=== PATIENT | male | born 1950 | race Caucasian/White ===

== ENCOUNTER 2016-10-01 18:08 | Inpatient (IN) ==
[2016-10-01 19:09] LABS: MANUAL DIFF NEEDED? NO
--- NOTE | 2016-10-01 19:09 | Diag Imaging Result Doc PS360 ---
EXAM: CHEST-PORTABLE HISTORY: r/o pneumonia TECHNIQUE: Portable upright AP COMPARISON: 06/27/2016 FINDINGS: There is complete opacification of the right upper hemithorax on the current exam. Patient has a known right hilar mass and there is likely postobstructive atelectasis. The left lung remains well expanded and clear. The heart is not enlarged. IMPRESSION: Known right hilar mass with postobstructive atelectasis and pneumonia in the right upper lobe. Electronically signed by Miguel Membreno 10/01/2016 7:06 PM
[2016-10-01] MEDS ORDERED: NS 1,000 ML IV ONE (19:11)
[2016-10-01] MEDS ORDERED: DUONEB (A & A) INH ONE (19:12)
[2016-10-01 19:14] LABS: BASO% 0.2 % (0.0-0.8); EOS# 0.01 X1000 (0.0-0.7); EOS% 0.1 % (0.0-10.0); HEMATOCRIT 33.9 % (42.0-52.0); HEMOGLOBIN 11.5 g/dL (14.0-18.0); IMM GRAN# 0.11 X1000 (0.0-0.04); IMM GRAN% 0.9 % (0.0-0.5); LYMPH# 0.79 X1000 (1.2-3.4); LYMPH% 6.3 % (20.5-51.1); MCH 32.4 PG (27-31); MCHC 33.9 g/dL (33-37); MCV 95.5 FL (81-99); MONO# 1.16 X1000 (0.11-0.59); MONO% 9.3 % (1.7-9.3); MPV 8.7 FL (7.4-10.4); NEUT% 83.2 % (42.2-75.2); PLT 344 X1000 (130-400); RBC 3.55 XMIL (4.7-6.1)
--- NOTE | 2016-10-01 19:15 | PROVIDER DOCUMENTATION ---
HPI-General Adult - General Chief Complaint: Fever Stated Complaint: POSSIBLE PNEUMONIA Time Seen by Provider: 10/01/16 18:58 Source: patient, family Allergies/Adverse Reactions: Patient Allergies Allergy/AdvReac Type Severity Reaction Status Date / Time codeine Allergy Unknown Verified 10/01/16 20:02 hydrocodone Allergy Unknown Verified 10/01/16 20:02 Home Medications: Home Medication List Medication Instructions Recorded Confirmed Last Taken Type Aspirin EC 81 mg PO DAILY 10/01/16 10/01/16 10/01/16 07:00 History Atorvastatin Calcium [Lipitor] 80 mg PO QHS 10/01/16 10/01/16 09/30/16 20:00 History Esomeprazole Magnesium [Nexium] 40 mg PO DAILY 10/01/16 10/01/16 10/01/16 07:00 History Fluconazole [Fluconazole] 100 mg DAILY 10/01/16 10/01/16 Unknown History Metoprolol Succinate [Toprol Xl] 100 mg PO DAILY 10/01/16 10/01/16 10/01/16 07: 00 History Sitagliptin Phos/Metformin HCl 1 each PO DAILY 10/01/16 10/01/16 10/01/16 07:00 History [Janumet 50-500 mg Tablet] - History of Present Illness -Gen Adult Nature of Presenting Problems: pt presents complaining of productive cough, dyspnea, fever for last week. He has been on augmentin for this. He has history of lung CA. He is not currently on chemo or radiation. He denies chest pain. pna approx 2 months ago as well. Location of Pain/Injury: reports: none Pain Radiation: reports: no radiation Quality of Pain: reports: none Review of Systems - Adult - REVIEW OF SYSTEMS - ADULT Constitutional: reports: chills, fever, fatique Eyes: reports: no symptoms reported Ears, Nose, Mouth & Throat: reports: no symptoms reported Cardiovascular: reports: no symptoms reported. denies: chest pain, palpitations Respiratory: reports: see HPI, cough, shortness of breath, wheezing Gastrointestinal: reports: no symptoms reported Genitourinary: reports: no symptoms reported Musculoskeletal: reports: no symptoms reported. denies: muscle aches Integumentary: reports: no symptoms reported. denies: rash Neurological: reports: no symptoms reported. denies: headache/migraines, paresthesia Psychiatric: reports: no symptoms reported Endocrine: reports: no symptoms reported Hematologic/Lymphatic: reports: no symptoms reported Allergic/Immunologic: reports: no symptoms reported All Other Systems: Reviewed and Negative Past History - Adult - PAST MEDICAL HISTORY-ADULT Review of Records: reports: Old Records Reviewed, Nursing Assessment Review, Medications Reviewed, Social history reviewed & non-contributory. Major Childhood Illnesses: reports: denies history Cardiovascular: reports: blood clots (remote) Respiratory: reports: COPD, cancer, pneumonia Gastrointestinal: reports: denies history Obstetrical/Gynecological: reports: denies history Genitourinary: reports: denies history Musculoskeletal: reports: denies history Neurological: reports: denies history Endocrine/Immune: reports: denies history Other Conditions: reports: denies history - IMMUNIZATION STATUS Childhood Immunizations: See Nurse Assessment Flu Vaccine: See Nurse Assessment - SOCIAL HISTORY Smoking: quit greater than 1 year Alcohol Use Frequency: never Physical Exam-General - PHYSICAL EXAM-ADULT Initial Vital Signs Reviewed: Yes - CONSTITUTIONAL General Appearance: alert, mild distress - EYES Eyes: PERRL/EOMI, pink conjunctivae - HEAD, EARS, NOSE, MOUTH & THROAT HENMT: normocephalic/atraumatic, moist mucous membranes - NECK Neck: non-tender, full range of motion, supple - RESPIRATORY Respiratory: chest non-tender, rhonchi, wheezing - CARDIOVASCULAR Cardiovascular: normal peripheral pulses, tachycardia - GASTROINTESTINAL (ABDOMEN) Abdominal Exam: normal bowel sounds, non tender, soft - LYMPHATIC Lymphatic: no adenopathy, axilla node tender - MUSCULOSKELETAL Back Exam: normal inspection Extremity: normal range of motion, non-tender. negative: calf tenderness Peripheral Pulses: radial (R): 2+, radial (L): 2+ - SKIN Integumentary: normal color, normal turgor, warm/dry - NEUROLOGIC Neurologic: utilities operator II-XII nml as tested - PSYCHIATRIC Psych/Mental Status: normal mood/affect, oriented x 3 Progress - PLAN OF CARE/RESULTS Progress/Plan/Lab Results: Vital Signs - 8 hr 10/01/16 18:16 Temperature 99.3 F Pulse Rate 127 H Respiratory Rate 22 Blood Pressure 155/74 O2 Sat by Pulse Oximetry 95 Laboratory Results - last 24 hr 10/01/16 18:56 WBC 12.49 H RBC 3.55 L Hgb 11.5 L Hct 33.9 L MCV 95.5 MCH 32.4 H MCHC 33.9 RDW Std Deviation 13.2 Plt Count 344 MPV 8.7 Immature Gran % (Auto) 0.9 H Neut % (Auto) 83.2 H Lymph % (Auto) 6.3 L Duval % (Auto) 9.3 Eos % (Auto) 0.1 Baso % (Auto) 0.2 Immature Gran # (Auto) 0.11 H Neut # (Auto) 10.40 H Lymph # (Auto) 0.79 L Duval # (Auto) 1.16 H Eos # (Auto) 0.01 Baso # (Auto) 0.02 Orders Category Date Time Status Cardiac Monitoring DIRECTED Care 10/01/16 19:00 Active Saline Loc NOW Care 10/01/16 19:00 Active CHEST-PORTABLE [RAD] Stat Exams 10/01/16 18:39 Completed BLOOD CULTURE [BLDCUL] Stat Lab 10/01/16 18:39 Uncollected CBC WITH ELECTRONIC DIFF [HEME] Stat Lab 10/01/16 18:56 Completed CK PROFILE [SP CHEM] Stat Lab 10/01/16 18:56 Received COMPREHENSIVE METABOLIC PANEL [CHEM] Stat Lab 10/01/16 18:56 Received D-DIMER [CHEM] Stat Lab 10/01/16 18:56 Received LACTATE, PLASMA [CHEM] Stat Lab 10/01/16 18:56 Received MAGNESIUM [CHEM] Stat Lab 10/01/16 18:56 Received PRO B-NATRIURETIC PEPTIDE Stat Lab 10/01/16 18:56 Received PROTIME WITH INR [COAG] Stat Lab 10/01/16 18:56 Received PTT [COAG] Stat Lab 10/01/16 18:56 Received TROPONIN T Stat Lab 10/01/16 18:56 Received 0.9% Sodium Chloride Inj [Ns] 1,000 ml Med 10/01/16 19:11 Discontinued IV As Directed Albuterol 2.5MG/Ipratrop 0.5MG [Duoneb (A & A)] Med 10/01/16 19:12 Discontinued 3 ml INH NOW ONE Aerosol Treatments Routine Oth 10/01/16 19:13 Active Aerosol Treatments Stat Oth 10/01/16 19:13 Active Pulse Oximetry Stat Oth 10/01/16 18:39 Active EKG [EKG] Stat Ther 10/01/16 18:41 Ordered pt feeling better. Result Diagrams: 10/01/16 18:56 10/01/16 18:56 - XRAY 1 XRAY Study: Chest XRAY Interpretation: pna, lung mass - CONSULTS/PCP/HOSPITALIST Notification #1 *Consult/PCP/Hospitalist*: Dr. Khanna Time Discussed: 21:24 Consult Disposition: Will see in ED Departure - Departure Date of Disposition Decision: 10/01/16 Time of Disposition Decision: 20:42 DIAGNOSIS: Elevated d-dimer Pneumonia Qualifiers: Pneumonia type: due to unspecified organism Laterality: right Lung location: upper lobe of lung Qualified Code(s): J18.1 - Lobar pneumonia, unspecified organism Sepsis Qualifiers: Sepsis type: sepsis due to unspecified organism Qualified Code(s): A41.9 - Sepsis, unspecified organism Disposition: ADMITTED INPATIENT 09 Certified Medical Emergency: Emergent Condition: Fair Referrals and Follow-Ups: None,PCP [Primary Care Provider] - - Critical Care Note This patient required my direct & personal management of CC.: Yes Total Time (mins): 30 Critical Care Statement: This patient required my direct personal management to treat or rule out processes, the absence of which, could potentiallly result in sudden, clinically significant life or limb threatening deterioration. Attestation - Physician/ GLENNA Attestation Patient care was provided by Advanced Practice Provider:: Yes Advanced Practice Provider:: Lucas Collazo Advanced Practice Provider documentation review:: The Mid-level provider documentation, treatment plan and medical decision making was reviewed by the physician who agrees with all treatment and medical decision making by the MLP.
[2016-10-01 19:23] LABS: INR 1.08; PROTIME 11.4 Seconds (9.2-11.7); PTT 31.1 Seconds (22.0-36.0)
[2016-10-01 19:35] LABS: MAGNESIUM 1.3 mg/dL (1.5-2.7); TOTAL BILIRUBIN 0.39 mg/dL (0.20-1.00); TOTAL PROTEIN 7.7 g/dL (6.3-8.3)
[2016-10-01] MEDS ORDERED: ZOSYN 3.375 GM/NS 3.375 GM/50 ML IVPB IV ONE (20:32)
[2016-10-01] MEDS ORDERED: VANCOMYCIN 1 GM/NS 1 GM/250 ML IVPB IV ONE (20:32)
[2016-10-01] MEDS ORDERED: NS 2,000 ML ONE (20:42)
--- NOTE | 2016-10-01 23:01 | Diag Imaging Result Doc PS360 ---
EXAM: CT THORAX W/O CONTRAST HISTORY: pna, right lung cancer TECHNIQUE: Dose reduction protocol COMPARISON: None. FINDINGS: There is consolidation of the right upper lobe. There is obstruction of the upper lobe bronchus by a central mass. Due to the complete consolidation it is not possible to determine the size of the central mass. This mass and/or adenopathy narrows the right mainstem bronchus and the bronchi to the right middle and lower lobes. There are dense infiltrates and small cavities in the lateral segment of the right middle lobe. There is a small right-sided pleural effusion measuring 2.6 cm posteriorly and inferiorly in the midline. No left-sided effusion. No cardiomegaly. There are calcified left hilar lymph nodes. There are multiple small nodules scattered throughout both lungs. IMPRESSION: Right perihilar mass of indeterminate size with complete consolidation of the right upper lobe and dense infiltrates and small cavities in the right middle lobe. There are also multiple scattered bilateral metastatic nodules in addition to small right pleural effusion. Electronically signed by Miguel Membreno 10/01/2016 10:58 PM
[2016-10-01] MEDS ORDERED: OFIRMEV 1000 MG/ISOTONIC SOLN 1,000 MG/100 ML BOTTLE IV PRN (23:12)
[2016-10-01] MEDS ORDERED: VANCOMYCIN IV PER PHARMACY MISC SCH (23:12)
[2016-10-01] MEDS: DUONEB (A & A) INH SCH (23:30)
--- NOTE | 2016-10-01 23:46 | HISTORY AND PHYSICAL ---
PRIMARY CARE PHYSICIAN: JOANNA Disla PRIMARY ONCOLOGIST: Dr. Ana María Rossi. HISTORY OF PRESENT ILLNESS: This is a 66-year-old male with past medical history lung cancer under the care Dr. Ana María Rossi. He reported he call Dr. Rossi's office approximately 10 days ago because he was having more cough and fever so he was prescribed Augmentin so today is day #9 on therapy and he reports that the cough is getting worse and he is still spiking fever today he had a 100.8 temperature with shortness of breath, some wheezing so he decided to come to the emergency department. He denies any chest pain. He denies any diarrhea or abdominal pain. Patient is being admitted for further evaluation and treatment. PAST MEDICAL HISTORY: 1. Lung cancer and he has last session of chemotherapy on last June 2016 and he also reports that he had metastasis to the brain and he received in total 15 sessions of radiotherapy that stopped 1 month ago. 2. Skin cancer in the back removed few years ago. 3. Bladder cancer 2004 he received 19 sessions BCG. 4. Coronary artery disease with stent placed in 2003. PAST SURGICAL HISTORY: Prostatectomy removed few years ago. ALLERGIES: Patient is allergic to hydrocodone, choline. SOCIAL HISTORY: Patient is a former smoker, he quit smoking 4 years ago. Denies drinking alcohol, using drugs. REVIEW OF SYSTEMS: All symptoms are related to H and P. PHYSICAL EXAMINATION: VITALS: Temperature 99.3 degrees, heart rate 127, respiratory 22, blood pressure 155/74, O2 saturation 95% on room air. GENERAL: The patient is a chronically ill looking 66-year-old male lying in bed in no acute distress. HEENT: Head is normocephalic, atraumatic. Anicteric sclerae and pale conjunctivae. Mucous membranes dry. NECK: Supple. No JVD noted. No carotid bruits. No lymphadenopathy. No thyromegaly. CARDIOVASCULAR: S1, S2 heard. No murmurs, gallops, or rubs. Regular rate and rhythm. RESPIRATORY: Wheezing all over both pulmonary yi with coarse breath sounds more noted in the right base all the way up to the apex. Patient is not using any accessory muscles or having work of breathing. ABDOMEN: Soft, nontender to palpation. Bowel sounds present. No organomegaly. EXTREMITIES: No clubbing, cyanosis, edema. Peripheral pulses present in both legs. NEUROLOGICAL: Patient alert and oriented x3. Able to move 4 extremities. Cranial nerves 2-12 grossly normal. LABORATORY DATA: White cell count 12.49, hemoglobin 11.5, hematocrit 33.9, platelets 344,000. Sodium 135, potassium 4.0, chloride 93, bicarbonate 28, BUN 23, creatinine 1.2, glucose 209. ASSESSMENT AND PLAN: 1. Community-acquired pneumonia. Patient is being admitted for pneumonia. Patient is still spiking fever and he failed outpatient therapy. Because of this I prefer to put this patient on broad-spectrum antibiotic with vancomycin and Zosyn. We are also provide breathing treatments with albuterol and Atrovent because patient wheezing in both lungs. I think is because of the chronic obstructive pulmonary disease and longstanding history of smoking. He is also febrile so we are going to use Tylenol as needed for fever. 2. Lung cancer. We are going to consult Dr. Rossi from Hematology/Oncology see what else we can do for this patient although apparently he has finished chemotherapy and radiotherapy with metastasis to the brain. 3. Diabetes. We are going to hold antidiabetic medication and place this patient on sliding scale insulin and check hemoglobin A1c and check Accu-Cheks before meals and also at bedtime. Further recommendations to follow according to clinical situation of the patient. cc: Sigifredo Diop MD
[2016-10-02] MEDS: NS 1,000 ML IV SCH ×2 (00:05→10:57)
[2016-10-02] MEDS: ZOFRAN IV PRN (00:05)
[2016-10-02] MEDS: LOVENOX SUBQ SCH ×2 (00:06→20:20)
[2016-10-02] MEDS ORDERED: VANCOMYCIN 1,500 MG in NS 250 ML IV ONE (02:00)
[2016-10-02 02:42] LABS: URINE CULTURE NEEDED? NO; URINE MICRO REVIEW NEEDED? NO; URINE SOURCE CATH
[2016-10-02 03:11] LABS: BILIRUBIN URINE NEGATIVE (NEGATIVE); BLOOD URINE NEGATIVE (NEGATIVE); COLOR YELLOW; GLUCOSE URINE NEGATIVE (NEGATIVE); LEUKOCYTES URINE NEGATIVE (NEGATIVE); NITRITE URINE NEGATIVE (NEGATIVE); PROTEIN URINE TRACE mg/dL (NEGATIVE); SP GRAVITY URINE 1.016; TURBIDITY URINE CLEAR (CLEAR); UR EPITHELIAL CELLS <10 /HPF (<10); URINE BACTERIA NEGATIVE /HPF; URINE RBC <10 /HPF (<10); URINE WBC <10 /HPF (<10); UROBILINOGEN URINE NORMAL (NORMAL)
[2016-10-02] MEDS: DUONEB (A & A) INH SCH ×6 (03:26→23:19)
[2016-10-02] MEDS: ZOSYN 3.375 GM/NS 3.375 GM/50 ML IVPB IV SCH ×4 (03:42→20:19)
[2016-10-02 05:45] LABS: MANUAL DIFF NEEDED? NO
[2016-10-02 05:53] LABS: BASO% 0.1 % (0.0-0.8); HEMATOCRIT 29.3 % (42.0-52.0); HEMOGLOBIN 9.9 g/dL (14.0-18.0); IMM GRAN# 0.07 X1000 (0.0-0.04); IMM GRAN% 0.6 % (0.0-0.5); LYMPH# 0.86 X1000 (1.2-3.4); MCH 32.2 PG (27-31); MCHC 33.8 g/dL (33-37); MCV 95.4 FL (81-99); MONO# 1.39 X1000 (0.11-0.59); MONO% 11.3 % (1.7-9.3); MPV 8.5 FL (7.4-10.4); PLT 280 X1000 (130-400); RBC 3.07 XMIL (4.7-6.1)
[2016-10-02] MEDS: HUMALOG SUBQ SCH ×4 (06:06→20:20)
[2016-10-02 06:11] LABS: AGAP 11; BUN 17 mg/dL (8-22); CALCIUM 8.6 mg/dL (8.8-10.2); CHLORIDE 96 mmol/L (98-107); COSMO 274; POTASSIUM 3.5 mmol/L (3.5-5.1); SODIUM 132 mmol/L (136-145); TCO2 25 mmol/L (25-35)
[2016-10-02] MEDS: NEXIUM PO SCH (08:44)
[2016-10-02] MEDS: ASPIRIN EC PO SCH (08:44)
[2016-10-02] MEDS: DIFLUCAN PO SCH (08:45)
--- NOTE | 2016-10-02 18:27 | PROGRESS NOTE ---
DATE: 10/02/2016 SUBJECTIVE: Mr. Wheeler is a 66-year-old male who got admitted yesterday. 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 Had 4 sessions of chemotherapy since March of this year and had 15 sessions of radiation to his brain. Subsequently he said he has been having some gait issues. He was started on Opdivo 3 days ago. However, yesterday he started having a temperature of over 101 at home so he decided to come into the emergency department. Upon presentation, he was evaluated and was admitted for right upper lobe pneumonia. OBJECTIVE: Vital signs: Blood pressure is 129/69, pulse of 103, respirations 12, temperature 98.5 degrees. General: Mr. Wheeler is a 66-year-old male. He is in bed. Does not seem to be in any remarkable distress. HEENT: Mucosa is pink and moist. Anicteric. Acyanotic. Neck: Supple. Chest: Air entry is bilaterally reduced, more so in the right upper lobe. There are some crepitations associated. Cardiovascular: Regular rate and rhythm. Abdomen: Soft, nontender. Extremities: No pedal edema. PNEUMATIC PRESS HAND: Patient is awake, alert, and oriented. There is no focal neurological deficit. The patient has a normal sensation level on the lower extremities and reflexes are normal. There seems to be a bilateral Babinski, however. LABORATORY DATA: WBC is 13.26, hemoglobin is 9.9, platelet count is 280,000. Chemistry is reviewed. Sodium is 132, potassium is 3.5, chloride 96, bicarb is 25, glucose is 250. Plasma lactate of 2.3, is now down to 1.3. CT scan of the chest which was done yesterday shows perihilar mass of indeterminate size with complete consolidation of the right upper lobe and dense infiltrates and small cavities in the right middle lobe. There are multiple scattered bilateral nodules in addition to small right pleural effusion. ASSESSMENT: 1. History of right upper lobe small-cell lung cancer with possible postobstructive pneumonia. Patient has been started on IV antibiotics, Zosyn and vancomycin. We will continue with this. Will consult ID for guidance and follow up. 2. Hyponatremia. 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 It has worsened actually this morning with the fluids, so I will go ahead and discontinue the IV fluids. 3. Gait imbalance. Likely due to radiation side effects on the brain. 4. Sepsis. Secondary to underlying pneumonia. 5. Diabetes mellitus with an A1c of 1.0. 6. Mild hypomagnesemia. We will replace this. cc: Dm Duque MD [facility] CAMPUSAdamaris
[2016-10-02] MEDS ORDERED: SAMSCA PO ONE (18:59)
[2016-10-02] MEDS: LIPITOR PO SCH (20:19)
[2016-10-02] MEDS: DILAUDID IV PRN (20:20)
[2016-10-02] MEDS ORDERED: ATORVASTATIN CALCIUM 80 MG PO SCH (21:00)
[2016-10-03] MEDS: VANCOMYCIN 2 GM in NS 500 ML IV SCH ×2 (00:03→02:16)
[2016-10-03] MEDS: DILAUDID IV PRN (00:11)
[2016-10-03] MEDS: ZOSYN 3.375 GM/NS 3.375 GM/50 ML IVPB IV SCH ×4 (02:17→21:03)
[2016-10-03] MEDS: DUONEB (A & A) INH SCH ×6 (03:21→23:32)
[2016-10-03 04:53] LABS: MANUAL DIFF NEEDED? NO
[2016-10-03 05:08] LABS: BASO% 0.1 % (0.0-0.8); EOS# 0.01 X1000 (0.0-0.7); EOS% 0.1 % (0.0-10.0); HEMATOCRIT 28.5 % (42.0-52.0); HEMOGLOBIN 9.5 g/dL (14.0-18.0); IMM GRAN# 0.11 X1000 (0.0-0.04); LYMPH# 0.85 X1000 (1.2-3.4); LYMPH% 7.5 % (20.5-51.1); MCH 32.3 PG (27-31); MCHC 33.3 g/dL (33-37); MCV 96.9 FL (81-99); MONO# 1.15 X1000 (0.11-0.59); MONO% 10.1 % (1.7-9.3); MPV 8.5 FL (7.4-10.4); NEUT% 81.2 % (42.2-75.2); PLT 309 X1000 (130-400); RBC 2.94 XMIL (4.7-6.1)
[2016-10-03 05:21] LABS: AGAP 14; BUN 12 mg/dL (8-22); CALCIUM 8.6 mg/dL (8.8-10.2); CHLORIDE 97 mmol/L (98-107); COSMO 282; POTASSIUM 3.7 mmol/L (3.5-5.1); SODIUM 138 mmol/L (136-145); TCO2 27 mmol/L (25-35)
[2016-10-03] MEDS: HUMALOG SUBQ SCH ×4 (06:22→21:02)
[2016-10-03] MEDS: DIFLUCAN PO SCH (08:39)
[2016-10-03] MEDS: NEXIUM PO SCH (08:39)
[2016-10-03] MEDS: ASPIRIN EC PO SCH (08:39)
[2016-10-03] MEDS: ZYVOX PO SCH ×2 (08:40→21:02)
--- NOTE | 2016-10-03 13:31 | Diag Imaging Result Doc PS360 ---
EXAM: BA SWALLOW W/VIDEO SPEECH THER HISTORY: dysphagia TECHNIQUE: Multiple swallows with rapid sequence imaging in the lateral projection. COMMENT: Patient was able to swallow various consistencies of barium. There is one episode with thin barium of transient aspiration which is cleared by coughing immediately. No obstructing lesions are present. There is no evidence of achalasia. IMPRESSION: Brief episode of aspiration as described. Electronically signed by Yariel Cordova 10/03/2016 1:28 PM
--- NOTE | 2016-10-03 15:32 | CONSULTATION ---
DATE OF CONSULTATION: 10/03/2016 CONCLUSION: This patient has a right lung pneumonia which he is predisposed to because he has cancer in the right lung which is partially obstructing his airways. The patient also has decreased hearing. RECOMMENDATIONS: I agree with treating the patient with Zosyn. I have discontinued vancomycin because the patient has decreased hearing and instead I have put the patient on Zyvox. DISCUSSION: The patient said for the past 3 days he has felt weak. He has been coughing and occasionally producing sputum. He has not had any fever or shaking chills. He has not noticed any blood in his sputum. Laboratory studies thus far, on CT scan there is a right hilar mass with consolidation and cavity formation in the right lung. CBC shows a white count of 11,250, hemoglobin 9.5, and platelet count 209,000. Creatinine is 1.1. GFR is greater than 60. Alkaline phosphatase is 167. Blood and urine cultures are negative. Urinalysis showed no white cells or bacteria. PAST MEDICAL HISTORY/REVIEW OF SYSTEMS: Eyes and ears: Patient has decreased hearing. He said this occurred secondary to a radiation of his brain because of metastatic lung cancer. The incision is intact. Neck: No stiffness. Respiratory: Patient has been coughing and occasionally producing sputum. He also has some pleuritic chest pain on the right side. Cardiovascular: No substernal pain or palpitations. GI: No nausea or vomiting, but the patient does have some loose stools. : No dysuria or flank pain. Endocrine: Patient does not have diabetes or thyroid disease. Neurologic: The patient does have metastatic lung disease in his brain. He has not been having seizures or syncopal episodes. He does have decreased hearing though. Bones, joints, muscles: No joint swelling or myalgias. The remainder of the patient's review of systems was completed and was negative. PREVIOUS HOSPITALIZATIONS AND OPERATIONS: He has had cervical spine surgery and removal of a skin cancer, removal of bladder cancer and insertion of BCG. Myocardial infarction with stents placed in the coronary artery. The patient also has PVCs. He has cataracts. He has had benign prostatic hypertrophy. Patient has been operated on for his prostate problem. MEDICAL DISEASES: Positive for myocardial infarction, lung cancer which is metastatic to the brain. Patient has also had bladder cancer and skin cancer. Diabetes, gastroesophageal reflux disease and hyperlipidemia. INFECTIOUS DISEASE HISTORY: Positive for pneumonia. FAMILY HISTORY: Positive for myocardial infarction, stroke, and cancer. [place]IAL HISTORY[place] He stopped smoking cigarettes 4 years ago. He rarely drinks alcoholic beverages. He does not do any drugs. ALLERGIES: Patient is allergic to codeine and hydrocodone. HOME MEDICATIONS: Janumet. Metoprolol. Nexium. Lipitor. Aspirin. PHYSICAL EXAMINATION: Vital Signs: Temperature is 98.9 degrees, pulse 116, respirations 21, blood pressure 128/79, patient weighs 255 pounds. Generally: This is a somewhat ill-appearing elderly male who is in no acute distress. Head, eyes, ears, nose, and throat: The patient has lost all his hair secondary to radiation. He has decreased hearing. He can see near objects. The patient is wearing dentures. Neck: No meningismus. Thorax: Increased AP diameter of the chest. Lungs: There were no breath sounds on the right side. The left side was clear. Abdomen: Soft and nontender. Neurologic: Patient is awake. As mentioned above, he has decreased hearing. He can move his extremities. There is no tremor. His sensation was intact to touch. Extremities: The patient has bilateral leg edema. Integument: No rash noted. Thank you for the consult. cc: Janak Marley MD
[2016-10-03] MEDS: LOVENOX SUBQ SCH (21:02)
[2016-10-03] MEDS: LIPITOR PO SCH (21:02)
--- NOTE | 2016-10-03 21:15 | PROGRESS NOTE ---
DATE: 10/03/2016 SUBJECTIVE: Today Mr. Wheeler referred to be doing fine. Did not actually have any major concern except that he said was having a little difficulty to swallow which he was not even able to describe it himself. He said it was whenever the food goes down he does not feel like it is stuck but he has maybe difficulty to initiate swallowing so we ordered a swallow evaluation which has come back almost normal. OBJECTIVELY: Vitals: Blood pressure is 142/77, pulse of 117, respirations 16, temperature 98.7 degrees. General: Mr. Wheeler is a 66-year-old male, he is in bed in no distress. HEENT: Mucosa is pink and moist. Anicteric. Acyanotic. Neck: Supple. Chest: Air entry is bilaterally reduced more so to the right upper lobe. There is some crepitation around it. Cardiovascular: Slightly tachycardic but no murmurs, no rubs. No gallops. Abdomen: Soft, nontender. Extremities: No pedal edema. POT ROOM SUPERVISOR: Patient is awake and alert and oriented. There is no focal neurological deficit. LABORATORY DATA: WBC is 11.35, hemoglobin is 9.5, platelet count of 309,000. Chemistry is reviewed. Sodium is up to 138, rest of chemistry is completely unremarkable. Glucose is 219. ASSESSMENT: 1. Sepsis on presentation secondary to underlying pneumonia. Patient presented after the first dose of Opdivo from his primary oncologist for the treatment of lung cancer. Subsequently he started having fever and chills so he came to the emergency department where he was found to have evidence of systemic inflammatory response syndrome plus pneumonia consistent with sepsis. He seems to be doing a whole lot better today. 2. Right upper lobe postobstructive pneumonia. 3. Right upper lobe small cell lung cancer noted. 4. 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 This got corrected with a dose of Samsca. 5. Subjective complaint of swallowing difficulties. However we did a swallow evaluation on fluoroscopy and it is completely normal. In general I think Mr. Wheeler seems to be doing fine. He was evaluated by Dr. Marley today and he has been placed on Zyvox and Zosyn. Sputum culture has also been has been collected, we pending the official report. So far Gram stain only shows white blood cell. His swallow evaluation has been unremarkable so I think by in about a day or 2 if he continues to be afebrile, breathing well he might be able to be discharged on oral antibiotics to follow up with his primary care oncologist and with also Dr. Marley. cc: Dm Duque MD
--- NOTE | 2016-10-03 21:54 | CONSULTATION ---
DATE OF CONSULTATION: 10/03/2016 REASON FOR CONSULTATION: Consultation has been requested by Dr. Duque. Consultation is for history of lung cancer, patient known. HISTORY OF PRESENT ILLNESS: Mr. Wheeler is a 66-year-old male who is known to us as we are currently treating him for squamous cell carcinoma of the lung. Patient is status post 4 cycles of neoadjuvant cisplatin, Taxotere with partial response on scans. Patient did develop brain metastasis and has recently completed whole brain radiation. He started Opdivo on 09/29/2016 has received 1 dose. Patient had originally called our office complaining of cough and congestion. He was started on Augmentin. However his symptoms did not improve and rather worsened. He then presented to [facility] complaining of cough with fever. He has failed oral Augmentin. Patient has now been admitted with pneumonia and is on IV antibiotics. We have been consulted to help assist in his care while he is here at [facility]. PAST MEDICAL HISTORY: 1. Lung cancer with brain metastasis as per above. 2. Skin cancer on the back removed few years ago. 3. Bladder cancer in 2004 where he received 19 sessions of BCG. 4. Coronary artery disease status post stent placement 2003. 5. Diabetes mellitus. 6. Hypertension. 7. GERD. 8. Degenerative disk disease. PAST SURGICAL HISTORY: Prostatectomy few years ago as per above in medical history. Tonsillectomy 1955, cervical fusion 1959, 1997 had that Mohs surgery for DSSP. SOCIAL HISTORY: Patient is a former smoker but quit 4 years ago. He denies drink any alcohol or using any drugs, patient is and lives with his spouse. FAMILY HISTORY: Mother at age 62 of breast cancer. Father at age 74 of heart disease. He also has siblings that have heart disease. REVIEW OF SYSTEMS: A 12 point review of system has been completed and is negative except for what was expressed in the HPI. PHYSICAL EXAMINATION: Vital Signs: Temperature 98.3 degrees, heart rate 116, blood pressure 147/80, respirations 16, O2 saturation 94% 2 L nasal cannula. General: male lying in hospital bed in no acute distress. He has family member at bedside. HEENT: Head normocephalic, atraumatic. Pupils equal, round, reactive. Oral mucosa appears to be normal. Trachea is midline. Gross auditory acuity is intact. Cardiovascular: Tachycardia noted. Respiratory: Patient has some wheezing and coarse breath sounds bilaterally. Abdomen: Soft, nontender, nondistended. Positive bowel sounds. Musculoskeletal: Some trace bilateral extremity edema noted. Neurologic: The patient appears to be alert and oriented x3 with no focal motor deficits. LABS AND STUDIES: White blood cells 11.35, hemoglobin 9.5, hematocrit 28.5, platelets 309,000. Sodium 138, potassium 3.7, chloride 97, CO2 27, BUN 12, creatinine 1.1, glucose 219. CT of chest done on 10/01/2016 shows consolidation of the right upper lobe and dense infiltrates and small cavities in the right middle lobe. Multiple scattered bilateral metastatic nodules in addition to the small right pleural effusion. ASSESSMENT: 1. Squamous cell carcinoma of the lung with brain metastasis. Status post neoadjuvant treatment, whole-brain radiation as per history of present illness. Now receiving Opdivo with his 1 only dose completed on 09/29/2016. Treatment will be on hold while the patient is in the hospital. He will follow up with us as an outpatient to consider reinitiating treatment. 2. Pneumonia. Continue current IV antibiotics, nebulizer treatments, O2 support. 3. Pain. Currently well controlled with p.r.n. Dilaudid. 4. Diabetes mellitus. Continue current management. 5. Hyponatremia. Better after Samsca. Continue to monitor. We want to thank you for consulting us on Mr. Wheeler. Will continue to follow along and adjust our treatment plan per his hospital course. Dictated by RADHA Pacheco for Cameron Dee MD cc: Cameron Dee MD
[2016-10-04] MEDS: DUONEB (A & A) INH SCH ×6 (03:21→23:10)
[2016-10-04] MEDS: ZOSYN 3.375 GM/NS 3.375 GM/50 ML IVPB IV SCH ×4 (04:11→20:22)
[2016-10-04 05:04] LABS: MANUAL DIFF NEEDED? NO
[2016-10-04 05:14] LABS: BASO% 0.1 % (0.0-0.8); EOS# 0.03 X1000 (0.0-0.7); EOS% 0.3 % (0.0-10.0); HEMATOCRIT 28.7 % (42.0-52.0); HEMOGLOBIN 9.4 g/dL (14.0-18.0); IMM GRAN# 0.08 X1000 (0.0-0.04); IMM GRAN% 0.8 % (0.0-0.5); LYMPH# 0.92 X1000 (1.2-3.4); LYMPH% 8.7 % (20.5-51.1); MCH 31.4 PG (27-31); MCHC 32.8 g/dL (33-37); MONO% 9.4 % (1.7-9.3); MPV 8.4 FL (7.4-10.4); NEUT% 80.7 % (42.2-75.2); PLT 330 X1000 (130-400); RBC 2.99 XMIL (4.7-6.1)
[2016-10-04 05:22] LABS: AGAP 10; BUN 8 mg/dL (8-22); CALCIUM 8.9 mg/dL (8.8-10.2); CHLORIDE 98 mmol/L (98-107); COSMO 278; POTASSIUM 3.6 mmol/L (3.5-5.1); SODIUM 137 mmol/L (136-145); TCO2 29 mmol/L (25-35)
--- NOTE | 2016-10-04 07:09 | Diag Imaging Result Doc PS360 ---
EXAM: CHEST-PORTABLE HISTORY: dyspnea TECHNIQUE: AP portable at 0500 COMMENT: There continues to be opacification of the right upper lobe. There is increasing opacity in the right lower lobe compared to 10/01/2016. IMPRESSION: Pneumonia right lower lobe. Pneumonia/atelectasis right upper lobe which may be due to bronchial obstruction. Possibility of mild interstitial pulmonary edema cannot be excluded. Electronically signed by Yariel Cordova 10/04/2016 7:07 AM
[2016-10-04] MEDS: DIFLUCAN PO SCH (10:16)
[2016-10-04] MEDS: ASPIRIN EC PO SCH (10:16)
[2016-10-04] MEDS: ZYVOX PO SCH ×2 (10:16→20:21)
[2016-10-04] MEDS: NEXIUM PO SCH (10:16)
[2016-10-04] MEDS: TOPROL XL PO SCH (11:06)
[2016-10-04] MEDS: HUMALOG SUBQ SCH ×5 (11:13→20:22)
--- NOTE | 2016-10-04 13:44 | PROGRESS NOTE ---
DATE: 10/04/2016 PRESENT ILLNESS: The patient has a right lung pneumonia to which he is predisposed because of having cancer in that lung which may have partially caused obstruction of the patient's airways. MEDICATIONS: The patient is receiving p.o. Zyvox and IV Zosyn. PHYSICAL EXAMINATION: Vital Signs: Temperature is 98.2 degrees, pulse 115, respirations 24, blood pressure 130/82. General: This is a somewhat ill-appearing, elderly male. He is in no acute distress. Ear, nose and throat: Patient has decreased hearing. There were no white patches in his mouth. Neck: No meningismus. Lungs: There were diminished breath sounds on the right side but not as bad as it was yesterday. The left lung is clear. Cardiovascular: Heart rate is regular. Abdomen: Soft and nontender. LAB AND X-RAY: An x-ray was taken today but the result is pending. One out of two blood cultures is growing a coagulase-negative staph which I think is a contaminant and does not deserve to be treated with antibiotics. Urine cultures negative. A specimen on Gram stain did not show any organisms. The culture is pending. CBC today shows a white count 10,590, hemoglobin 9.7, and platelet count 330,000. Creatinine is 1.0. GFR is greater than 60. Yesterday the patient had a barium swallow and initially had only 1 episode of aspiration which was clearly cleared by coughing. ASSESSMENT AND PLAN: The patient has pneumonia in the same lung that he has cancer. For now continue with the current antibiotics and I will be waiting for the results of the sputum culture and today's x-ray report. COMORBIDITIES: His main one is lung cancer which is metastatic to the brain. He also is a diabetic and he has gastroesophageal reflux disease. Our aim will be to hopefully get the patient out of the hospital tomorrow. As mentioned above, I would like to see the sputum culture result before discharging the patient. cc: Janak Marley MD
--- NOTE | 2016-10-04 15:27 | PROGRESS NOTE ---
DATE: 10/04/2016 SUBJECTIVE: Patient reports feeling fine. Breathing better. No spiking fever anymore. He still reports some difficulty in swallowing. He attributes this to probably lack of saliva; that has been going on for apparently since last chemotherapy cycle. OBJECTIVE: Vital Signs: Temperature 98.6 degrees, heart rate 123, respiratory rate 18, blood pressure 120/73, O2 saturation 95% on 2 L nasal cannula. General Examination: This is a chronically ill-looking, frail, 66-year-old male, lying in bed in no acute distress. HEENT: Head is normocephalic, atraumatic. Anicteric sclerae and pale conjunctivae. Mucous membranes moist. Neck: Supple. No JVD noted. No carotid bruits. No lymphadenopathy. No thyromegaly. Cardiovascular exam: S1, S2 heard. No murmurs, gallops, or rubs. Regular rate and rhythm. Respiratory exam: There are some crepitations in both bases, most noted in the right upper lobe. Patient is not using any accessory muscles or having work of breathing. Abdomen: Soft, nontender to palpation. No signs of peritoneal irritation. Bowel sounds present. No organomegaly. Extremities: No clubbing, cyanosis, or edema. Peripheral pulses present in both legs. Neurological exam: Patient alert and oriented x3. Moves 4 extremities. Cranial nerves 2- 12 grossly normal. LABORATORY DATA: White cell count 10.59, hemoglobin 9.4, hematocrit 28.7, platelets 330. BMP unremarkable. ASSESSMENT AND PLAN: 1. Sepsis secondary to right lower lobe pneumonia. Clinically, the patient is improving. He is not spiking any more fever. The white cell count is back to normal. Generally speaking, the patient is doing good. At this point, we are going to continue with the same management. Dr. Marley from infectious disease is following this patient, and he is on Zyvox and Zosyn. 2. 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 Hematology/oncology has been consulted. They are following the patient in the hospital. 3. 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 By now, sodium is back to normal. 4. Dysphagia. The patient was complaining of swallowing difficulties at admission, so body and swallow test was ordered which basically was reported as normal, but considering this patient continues to have this problem, we are going to consult gastroenterology and see what they have to say. 5. Physical deconditioning. We are going to consult physical therapy. cc: Sigifredo Diop MD
[2016-10-04] MEDS: LOVENOX SUBQ SCH (20:21)
[2016-10-04] MEDS: LIPITOR PO SCH (20:21)
[2016-10-05] MEDS: DUONEB (A & A) INH SCH ×3 (03:17→11:09)
[2016-10-05] MEDS: ZOSYN 3.375 GM/NS 3.375 GM/50 ML IVPB IV SCH ×3 (04:00→14:35)
[2016-10-05 05:00] LABS: MANUAL DIFF NEEDED? NO
[2016-10-05 05:10] LABS: BASO% 0.2 % (0.0-0.8); EOS# 0.02 X1000 (0.0-0.7); EOS% 0.2 % (0.0-10.0); HEMATOCRIT 28.3 % (42.0-52.0); HEMOGLOBIN 9.4 g/dL (14.0-18.0); IMM GRAN# 0.07 X1000 (0.0-0.04); IMM GRAN% 0.7 % (0.0-0.5); LYMPH% 9.2 % (20.5-51.1); MCH 32.1 PG (27-31); MCHC 33.2 g/dL (33-37); MCV 96.6 FL (81-99); MONO# 0.92 X1000 (0.11-0.59); MONO% 9.4 % (1.7-9.3); MPV 8.6 FL (7.4-10.4); NEUT% 80.3 % (42.2-75.2); PLT 354 X1000 (130-400); RBC 2.93 XMIL (4.7-6.1)
[2016-10-05 05:42] LABS: AGAP 14; BUN 9 mg/dL (8-22); CALCIUM 8.8 mg/dL (8.8-10.2); CHLORIDE 97 mmol/L (98-107); COSMO 283; POTASSIUM 3.7 mmol/L (3.5-5.1); SODIUM 140 mmol/L (136-145); TCO2 29 mmol/L (25-35)
[2016-10-05] MEDS: HUMALOG SUBQ SCH ×2 (06:48→11:47)
[2016-10-05 08:44] LABS: INR 1.17; PROTIME 12.4 Seconds (9.2-11.7)
[2016-10-05] MEDS: ZOFRAN IV PRN (09:11)
[2016-10-05] MEDS ORDERED: NS 250 ML ONE (09:46)
[2016-10-05] MEDS: NEXIUM PO SCH (10:48)
[2016-10-05] MEDS: TOPROL XL PO SCH (10:48)
[2016-10-05] MEDS: ASPIRIN EC PO SCH (10:48)
[2016-10-05] MEDS: ZYVOX PO SCH (10:48)
[2016-10-05] MEDS: DIFLUCAN PO SCH (10:48)
--- NOTE | 2016-10-05 11:06 | PROGRESS NOTE ---
DATE: 10/05/2016 PRESENT ILLNESS: The patient has a right lung pneumonia which appears to be spreading despite being on antibiotics. Unfortunately, he has cancer in that lung and the pneumonia may be spreading because of obstruction due to the patient's cancer. MEDICATIONS: The patient is on IV Zosyn and p.o. Zyvox. PHYSICAL EXAMINATION: Vital Signs: Temperature is 98 degrees, pulse 90, respirations 16, blood pressure 130/70. Generally: This is a fairly healthy-appearing, elderly male. He is in no acute distress. Ears, Nose, and Throat: The patient has decreased hearing. There were no white patches in his mouth. Lungs: There were markedly diminished breath sounds on the right. The left lung was clear. Cardiovascular: Heart rate is regular. Abdomen: Soft and nontender. LAB AND X-RAY: The patient's chest x-ray shows increasing right lung opacity. The patient's sputum grew normal lizzy. Creatinine is 1.1. GFR is greater than 60. CBC shows a white count of 9780, hemoglobin 9.4, and platelet count 354,000. ASSESSMENT AND PLAN: The patient has right lung cancer and also a superimposed pneumonia. My plan is to continue Zosyn only but increase the dose to 4.5 g intravenous every 6 hours and also continue his Zyvox orally for the patient when he goes home, hopefully today. I plan to see the patient back in the office in 3 weeks at which time I will examine him and repeat his x-ray. Hopefully, there will be some clearing of his lung. COMORBIDITIES: Lung cancer which is metastatic to the brain, diabetes mellitus, and gastroesophageal reflux disease. cc: Janak Marley MD
[2016-10-05 12:19] VITALS: BP 152/76
[2016-10-05] MEDS ORDERED: MBX SOLUTION MT PRN (13:51)
[2016-10-05] MEDS ORDERED: NON-FORMULARY BULK MED PO PRN (13:58)
[2016-10-05] MEDS ORDERED: MISC. PHARMACY COMMUNICATION SCH (14:00)
--- NOTE | 2016-10-05 16:33 | PROGRESS NOTE ---
DATE: 10/05/2016 SUBJECTIVE: Patient currently lying in bed. His is present at the bedside. He complains of dryness of his mouth. He complains of lack of taste with food. He had a recent diagnosis of lung cancer in March of 2016. He is status post chemotherapy and radiation. He finished radiation 4 weeks ago. He is on Opdivo per Dr. Ana María Rossi. He had a barium study done which showed a brief episode of aspiration which was cleared by coughing immediately. No obstruction lesions present and no evidence of stricture noted on the barium upper GI study. He denies any nausea or vomiting. He has been moving his bowels. He had 2 bowel movements today. He denies any fevers, rigors, or chills. OBJECTIVE: Vital signs: Temperature 98.3 degrees, pulse rate of 106, respiratory rate 18, blood pressure of 152/76, saturating 100% on 2 L. Body weight of 251 pounds. BMI of 32.3 kg. General Appearance: Obese, lying in bed, in no acute distress. HEENT: Pale conjunctivae. No icterus. Neck: Supple. Abdomen: Obese, soft. Bowel sounds are present. No guarding. Extremities: No cyanosis, clubbing. Neurologic: He is alert, awake, oriented. LABS: Hemoglobin and hematocrit are 9.4 and 28.3, white count of 9.7, platelet count of 354,000. MCV of 80.3. PT of 12.4, INR 1.17. Sodium 140, potassium 3.7, chloride 97, bicarb 29, BUN of 9, creatinine 1.1, glucose of 192, calcium 8.8. IMPRESSION AND PLAN: 1. Sepsis secondary to right lower lobe pneumonia. Currently on Zyvox per the primary team. Dr. Marley is following. 2. Right upper lobe small-cell lung cancer. Followed by Dr. Ana María Rossi. He is status post radiation which he finished 4 weeks ago. He is currently on Opdivo. 3. Dysphagia. The results of the barium upper GI study were discussed with the patient. Most likely the patient could have some esophagitis from radiation. In this regard, we will give him Biotene to help with saliva substitute and Magic mouthwash as needed. We will keep him on acid blockers with Nexium once daily. If he continues to have symptoms we will perform an EGD with possible dilation in 2 weeks after discharge. The patient will follow gastroesophageal reflux life changes. 4. Above plan of care was discussed with the patient and the family. cc: MD Sigifredo Way MD Heather Shah, MD Leroy F. Harris, MD MTDD
--- NOTE | 2016-10-05 19:06 | CONSULTATION ---
DATE OF CONSULTATION: 10/04/2016 REASON FOR CONSULTATION: 1. Dysphagia. 2. Nonspecific abnormality is seen on swallowing studies. HISTORY OF PRESENT ILLNESS: 66-year-old gentleman presents with a right-sided lower lobe pneumonia while on chemotherapy and getting sick and febrile and coughing. Admitted for treatment of pneumonia. I was asked because of his dysphagia. PAST MEDICAL HISTORY: 1. Lung cancer, and also brain mets with total of radiotherapy 15 sessions. The last 1 was a month ago. 2. Skin cancer. 3. Bladder cancer 2004. 4. Coronary artery disease with stent placement. 5. Prostate removal. ALLERGIES: Allergic to hydrocodone and codeine. SOCIAL: Former smoker although stopped smoking 4 years ago. Does not drink or use drugs. REVIEW OF SYSTEMS: Negative other than the above. PHYSICAL EXAMINATION: Revealed this pleasant gentleman. Well built and temp of 99 degrees, heart rate 100, respiration 18, blood pressure 150/74, O2 sats 96% on room air. General: Chronic elderly ill 66-year-old gentleman with disease secondary to possible chemoradiation. HEENT: No scleral icterus. Conjunctival pallor. Mucous membranes are dry. His oral mucosa is completely dry. Neck: Supple. No lymphadenopathy. Heart: Normal first and second heart sounds. Lungs: Wheezing and rales at the right base mostly but there is some on the left side as well. Abdomen: Protuberant, soft, nontender. Bowel sounds present. No organomegaly. Extremities: No cyanosis or clubbing. Neurological: Alert and oriented. LABORATORY DATA: White count 17125. Hematocrit 33.9. IMPRESSION AND PLAN: 1. Dysphagia. I had extensive conversation about the following. Patient mainly says his mouth is dry and he has to drink lot of water to swallow anything and if he swallows only in the mouth and oropharyngeal area, he does not have any trouble with food going down after it went through the oropharyngeal phase. 2. Right lower lobe pneumonia. 3. Lung cancer. 4. Diabetes. I have talked to him at length. I explained that this is probably related to radiation therapy. This should improve. The swallowing studies are not impressive. I have explained this and told him to follow up with us. If it needs there may be subtle esophageal stricture, we will do EGD and dilation. cc: MD Sigifredo Sparrow MD
--- NOTE | 2016-10-06 09:29 | DISCHARGE SUMMARY ---
ADMISSION DATE: 10/01/2016 DISCHARGE DATE: 10/05/2016 CONSULTATIONS: 1. Dr. Janak Marley with infectious disease. 2. Dr. Dee with hematology/oncology. PERTINENT PROCEDURES: 1. Chest CT showed right perihilar mass of indeterminate size with complete consolidation of the right upper lobe and dense infiltrates and small cavities in the right middle lobe. There are multiple scattered bilateral metastatic nodules in addition to a small right pleural effusion. 2. Modified barium swallow showed brief episode of aspiration. DISCHARGE DIAGNOSES: 1. Sepsis secondary to right lower lobe pneumonia. Clinically, the patient has improved. The patient is being discharged on oral Zyvox by Dr. Janak Marley. 2. Right upper lobe small cell lung cancer, followed by hematology/oncology with brain metastasis, status post neoadjuvant treatment, whole-brain radiation, now receiving Opdivo with only 1 dose completed on 09/29/2016. Treatment was on hold while the patient was in the hospital. He will follow up as outpatient to consider reinitiation. 3. Hyponatremia secondary to syndrome of inappropriate antidiuretic hormone secretion, better after Samsca. 4. Dysphagia. The patient underwent a modified barium swallow study that did show 1 episode of thin barium of transient aspiration which was cleared by cough immediately. Continue on a gastrointestinal soft diet. HOSPITAL COURSE: Mr. Wheeler is a 66-year-old male who carries a past medical history of lung cancer, under the care of Dr. Ana María Rossi. He also has a history of skin cancer and bladder cancer as well as coronary artery disease with a stent placement. He reported that he called Dr. Rossi's office approximately 10 days prior to his admission. He was having more cough and fever, was prescribed Augmentin. On the day of his admission, he was on 9 days of therapy and reported that the cough was getting worse and he was still spiking fevers. His temperature was 100.8 degrees and he was having shortness of breath with wheezing. In the ED, his temperature was 99.3 degrees. His heart rate was 127. His respiratory rate was 22. His O2 saturation on room air was 95%. His white count was 12. The patient was admitted for community-acquired pneumonia after a CT of the chest showed right perihilar mass of indeterminate size with complete consolidation in the right upper lobe and dense infiltrates and small cavities in the right middle lobe. Also multiple scattered bilateral metastatic nodules in addition to small right pleural effusions. He was placed on broad-spectrum IV antibiotics, placed on bronchodilators, as well as aggressive pulmonary toilet and Tylenol for his fever. Hematology/oncology was consulted to follow along with the patient. Dr. Janak Marley was also consulted. He continued the patient on the Zosyn. He discontinued the vancomycin secondary to the patient's decreased hearing and started him on Zyvox. Hematology agreed with treatment. His cancer treatments will be placed on hold while he is in the hospital. They can be reinitiated once he is discharged. Mr. Wheeler also complained of some dysphagia. He underwent a modified barium swallow. It did show 1 episode of thin barium with transient aspiration that was quickly cleared by cough immediately for which he was placed on a GI soft diet as well as aspiration precautions. Clinically, Mr. Wheeler has improved. He is appropriate for discharge home today. Dr. Janak Marley has placed the patient on p.o. Zyvox. Vital signs at time of his discharge, temperature was 98.1 degrees, heart rate was 96, respirations 20, blood pressure was 147/78, O2 was 97% on 2 L nasal cannula. DISCHARGE DIET: GI soft. DISCHARGE MEDICATIONS: As per Dr. Khanna: 1. Aspirin 81 mg p.o. daily. 2. Lipitor 80 mg p.o. at bedtime. 3. Nexium 40 mg p.o. daily. 4. Zyvox 600 mg p.o. q.12 hours. 5. Toprol-XL 100 mg p.o. daily. 6. Janumet 50/500 one each p.o. b.i.d. FOLLOWUP: Mr. Wheeler is being discharged home with his spouse. He will follow up with Dr. Janak Marley in 3 weeks as well as his cnc specialist, Dr. Ana María Rossi, to see about resuming his treatments. The patient can return to the ED for any worsening symptoms. He is to follow a GI soft diet as well as aspiration precautions. DISCHARGE TIME: 37 minutes. Dictated by JOANNA Carpio for Sigifredo Diop MD cc: Sigifredo Diop MD [facility]
--- NOTE | 2016-12-28 21:20 | ED EKG INTERP ---
This chart was entered by Keenan Perez Scribe, acting as scribe for Contreras Barnett MD. EKG Interpretation - EKG Time of EKG reading by physician:: 18:48 EKG Read and Signed by:: Contreras Barnett EKG Interpretation (*Must complete 3 of following elements*): Abnormal ( Possible left atrial enlargement; T wave abnormality, consider inferior ischemia ) Rate: 123 Rhythm: Sinus tachycardia with PAC Attestation - Physician/ GLENNA Attestation The physician spent face to face time with patient:: No Advanced Practice Provider documentation review:: Supervising physician onsite and consulted in the evaluation and care of this patient. The physician did not have a face to face encounter with the patient. This chart was documented by the indicated scribe, (Keenan Perez Scribe) and accurately reflects the services I performed and decisions made by me, Contreras Barnett MD, as attested by the provider's signature.
== END 2016-10-05 16:15 | disposition home health service (06) ==
LOC: ED 18:08 → SUATTDRO 22:42 → 3S 22:42
PROVIDERS: ATTEND Internal Medicine

== ENCOUNTER 2016-10-08 07:02 | Inpatient (IN) ==
[2016-10-08] MEDS ORDERED: NS 1,000 ML IV ONE (07:30)
[2016-10-08 07:59] LABS: BASO% 0.4 % (0.0-0.8); EOS# 0.07 X1000 (0.0-0.7); EOS% 0.5 % (0.0-10.0); HEMATOCRIT 29.6 % (42.0-52.0); HEMOGLOBIN 9.8 g/dL (14.0-18.0); IMM GRAN# 0.16 X1000 (0.0-0.04); IMM GRAN% 1.2 % (0.0-0.5); LYMPH# 1.11 X1000 (1.2-3.4); LYMPH% 8.3 % (20.5-51.1); MANUAL DIFF NEEDED? NO; MCH 31.8 PG (27-31); MCHC 33.1 g/dL (33-37); MCV 96.1 FL (81-99); MONO% 10.5 % (1.7-9.3); MPV 8.3 FL (7.4-10.4); NEUT% 79.1 % (42.2-75.2); PLT 460 X1000 (130-400); RBC 3.08 XMIL (4.7-6.1)
[2016-10-08 08:22] LABS: AGAP 13; ALBUMIN 2.5 g/dL (3.5-5.0); ALKALINE PHOSPHATASE 124 U/L (32-122); BUN 17 mg/dL (8-22); CALCIUM 9.7 mg/dL (8.8-10.2); CHLORIDE 97 mmol/L (98-107); COSMO 277; GOT 16 U/L (10-34); GPT 11 U/L (10-44); POTASSIUM 3.4 mmol/L (3.5-5.1); SODIUM 136 mmol/L (136-145); TCO2 26 mmol/L (25-35); TOTAL PROTEIN 6.2 g/dL (6.3-8.3)
--- NOTE | 2016-10-08 09:00 | Diag Imaging Result Doc PS360 ---
CHEST-PORTABLE - 10/08/2016 INDICATION: pneumonia TECHNIQUE: COMPARISON: 10/04/2016 FINDINGS: There is a new right PICC line in good position with the catheter tip at the lower SVC. Stable extensive consolidation at the right upper lobe. There is slight worsening infiltrate throughout the nonconsolidated portion of the right lung. The left lung remains well expanded and clear. No deviation of the mediastinum. Heart size remains normal. IMPRESSION: Slight worsening infiltrate in the right lower lobe. Electronically signed by John Rivera 10/08/2016 8:57 AM
[2016-10-08 09:20] LABS: URINE MICRO REVIEW NEEDED? NO; URINE SOURCE VOIDED
[2016-10-08 09:26] LABS: BILIRUBIN URINE NEGATIVE (NEGATIVE); BLOOD URINE NEGATIVE (NEGATIVE); COLOR YELLOW; GLUCOSE URINE NEGATIVE (NEGATIVE); LEUKOCYTES URINE NEGATIVE (NEGATIVE); NITRITE URINE NEGATIVE (NEGATIVE); PH URINE 6.5; PROTEIN URINE TRACE mg/dL (NEGATIVE); SP GRAVITY URINE 1.019; TURBIDITY URINE CLEAR (CLEAR); UROBILINOGEN URINE NORMAL (NORMAL)
[2016-10-08 09:28] LABS: UR EPITHELIAL CELLS <10 /HPF (<10); URINE BACTERIA NEGATIVE /HPF; URINE RBC <10 /HPF (<10); URINE WBC <10 /HPF (<10)
[2016-10-08] MEDS: NS 1,000 ML IV SCH (13:42)
[2016-10-08] MEDS: LOVENOX SUBQ SCH (13:54)
[2016-10-08] MEDS: ZOSYN 4.5 GM/NS 4.5 GM/100 ML IVPB IV SCH ×2 (13:54→20:53)
[2016-10-08] MEDS: HUMULIN R SUBQ SCH ×3 (14:15→20:54)
--- NOTE | 2016-10-08 14:46 | HISTORY AND PHYSICAL ---
PRIMARY CARE PHYSICIAN: Maria De Jesus Wesbter, nurse practitioner, under the care of [facility] in [place], [place]. PRIMARY ONCOLOGIST: Dr. Ana María Rossi. GASTROENTEROLOGY PHYSICIAN: Last seen with previous admission, Dr. Jean. CHIEF COMPLAINT: Increased weakness and difficulty swallowing. HISTORY OF PRESENT ILLNESS: Mr. Wheeler is an unfortunate 66-year-old male with a past medical history of lung cancer, under the care of Dr. Rossi. He also reports that he has metastasis to the brain and has received radiation for his brain metastasis within the last month and his last chemotherapy being in June. reports over the last several weeks he has continued to decline. He was admitted under the care of the hospitalist from October 01 to October 05, at which time he had a GI consult at that time for dysphagia and also continued right lower lobe pneumonia. He does continue to aspirate very easily, per the , and is having trouble swallowing and recently within the last several days choked on some peaches. He does have a PICC line to his right arm as well where he was discharged previously to take Zosyn, and the reports he has discontinued with increased weakness and deconditioning, and he is sleeping a lot more, and also right arm swelling which is the arm that his PICC line is placed in. Patient denies any pain or additional symptoms at this time. He will be further admitted for treatment of this. PAST MEDICAL HISTORY: 1. Lung cancer with metastasis to the brain. 2. Skin cancer many years ago. 3. Bladder cancer 2004. 4. Coronary artery disease with stent placement 2003. 5. Borderline diabetes. PAST SURGICAL HISTORY: 1. Prostatectomy. 2. Cervical fusion. 3. Cataract surgery. SOCIAL HISTORY: The patient is a former smoker. He quit smoking about 4 years ago. He denies any alcohol or drug use. 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 ALLERGIES: Patient is allergic to codeine and hydrocodone. MEDICATIONS: Pending reconciliation. LABORATORIES AND DIAGNOSTICS: CBC: White count 13.39, hemoglobin and hematocrit 9.8 and 29.6, platelets 460,000. BMP: Sodium 136, potassium 3.4, chloride 97, CO2 26, BUN 17 , creatinine 1.1, glucose 155, alkaline phosphatase 124. UA shows proteinuria. Chest x-ray showed continued right lower lobe pneumonia. REVIEW OF SYSTEMS: Ten point review of systems negative other than previously stated in HPI. PHYSICAL EXAMINATION: VITAL SIGNS: Temperature 98.4 degrees, pulse 89, respiration is 29, blood pressure 162/90, O2 saturation 91% on room air. HEENT: Normocephalic, atraumatic. Mucous membranes dry. NECK: Supple. No JVD. CHEST: Bilateral breath sounds diminished. No accessory muscle use noted. Respiration is unlabored. CARDIOVASCULAR: Normal S1, S2. ABDOMEN: Abdomen is soft, nontender, nondistended. Positive bowel sounds. EXTREMITIES: No evidence of clubbing, cyanosis, or edema of his lower extremities. His right upper extremity does have mild trace amount of edema and he does have an indwelling PICC line to his right antecubital area. NEUROLOGIC: The patient is slightly lethargic but opens eyes in response to questioning appropriately. His face is symmetrical. He does have slight right upper extremity weakness with hand grasp. Right lower extremity strength is equal. No other focal findings. ASSESSMENT AND PLAN: 1. Metastatic lung cancer to brain. We will consult Dr. Rossi for further assistance with this, and will discuss long-term goals with patient in accordance with Dr. Rossi's recommendations as well. 2. Persistent right lower lobe pneumonia. We will continue with IV antibiotics and obtain blood cultures. We will get a sputum culture as well with the location of the pneumonia not only being postobstructive but likelihood that this could be from aspiration is a possibility as well as he has problems with swallowing. 3. Dysphagia. We will consult Gastroenterology for other recommendations and speak with the wishes with family with his trouble swallowing to discuss other routes of nutrition as needed and long-term goals. 4. Coronary artery disease status post cardiac stent. Aware. 5. Borderline diabetes. We will continue with sliding scale insulin as needed and pattern blood sugars. 6. Further orders pending physician evaluation. Dictated by JOANNA Erazo for Sigifredo Diop MD cc: JOANNA Erazo MD [facility]
[2016-10-08] MEDS: DUONEB (A & A) INH SCH ×2 (15:20→22:41)
[2016-10-08] MEDS: NEXIUM IV SCH (17:33)
--- NOTE | 2016-10-08 18:22 | CONSULTATION ---
DATE OF CONSULTATION: 10/08/2016 PRIMARY CARE DOCTOR: Maria De Jesus Webster. PRIMARY ONCOLOGIST: Dr. Dee. REASON FOR CONSULTATION: Odynophagia and dysphagia. HISTORY: Mr. Wheeler is a 58-year-old male with a history of small cell lung cancer diagnosed in March 2016. He is under the care of Dr. Ana María Rossi and Dr. Dee. He has metastasis to the brain. Has received radiation for the brain metastasis within the last month. He has received chemotherapy which ended in June. He has also received chemotherapy to the chest area and started radiation therapy to the chest area which ended about 4 weeks ago. Since that time, he is having trouble with swallowing and he chokes on solid foods and medications. He was recently in the hospital last week and he was treated for pneumonia. At that time was offered EGD but the patient wanted to hold off until he got better from pneumonia. He was discharged but was readmitted 3 days later with complaints of odynophagia, dysphagia with medicines and food and failure to thrive and deconditioning, weakness. Since in the hospital he is on IV fluids. He was able to keep applesauce down yesterday. He denies any vomiting blood, passing blood in the stools. PAST MEDICAL HISTORY: 1. Of small cell lung cancer with brain mets status post chemo radiation therapy with recent radiation to the chest and brain 4 weeks ago. 2. Skin cancer many years ago. 3. Bladder cancer in 2004. 4. Coronary artery disease with stent placement. 5. Borderline diabetes. 6. Obesity. PAST SURGICAL HISTORY: Prostatectomy, cervical fusion, cataract surgery. SOCIAL HISTORY: He is a former smoker. Quit smoking 4 years ago. Denies alcohol or drug abuse. He lives with his and he formerly worked as maintenance in a manufacturing plant. There he was exposed to several chemicals as well. ALLERGIES: To codeine and hydrocodone. MEDICATIONS IN THE HOSPITAL: Reviewed. SYSTEM REVIEW: Denies any current fevers, rigors, chills, chest pain. He does have some shortness of breath. He denies any vomiting blood. He does complain of nausea and odynophagia, dysphagia. He denies seeing blood in the stools. Denies a history of arthritis. Denies any neurologic complaints. He does feel weak and fatigued. Vitals: Temperature 98.9 degrees, pulse rate of 102, respiratory rate of 22, blood pressure 159/75, saturating 91% on room air. Body weight of 252 pounds 8 ounces. BMI of 33.3 kg. General: Moderately nourished lying in bed, in no acute distress. HEENT: Pale with no icterus. Pupils equal, react to light. Neck: Supple. Chest: Decreased breath sounds at the bases; Cardiac: Tachycardia. Abdomen: Obese soft, nontender, nondistended. Bowel sounds are present. Extremities: No cyanosis, clubbing. Neurologic: He is alert, awake, oriented x3 LABS: His hemoglobin and hematocrit is 9.8 and 29.6, white count of 13.3, platelet count of 460,000. MCV of 96.1. Sodium 132, potassium 3.4, chloride 97, bicarb 26. Anion gap 13. BUN of 17, creatinine 1.1, glucose 155. Calcium 9.7. Total bilirubin is 0.5. AST 16 , ALT 11, alkaline phosphatase 124. Total protein 6.2, albumin of 2.5. Urinalysis showing trace protein. Chest x- ray was done which showed slight worsening infiltrate in the right lower lobe. PICC line in good position. IMPRESSION AND PLAN: 1. Small cell lung cancer and brain mets status post chemoradiation 4 weeks ago. Under care of Dr. Dee and Dr. Ana María Rossi. 2. Odynophagia, dysphagia going on for the last 1-2 weeks. 3. Right lower lobe pneumonia which has gotten worse per the current x-ray. 4. Anemia. RECOMMENDATIONS: 1. We will keep the patient on aspiration precaution. 2. We will keep on clear liquid diet. We will start on Ensure 1 can p.o. t.i.d. 3. Will keep a watch on his albumin status. 4. We will schedule EGD on Monday morning under anesthesia. The risks, benefits , indications, alternatives discussed with the patient. All questions answered. 5. Start Nexium IV b.i.d. Start Biotene Three times daily as needed; Start Magic mouth wash 15 ml TID. 6. We will continue with Carafate 1 g 6 hours liquid. 7. We will continue antibiotics per the primary team for right lower lobe pneumonia. 8. We will follow the recommendation of Dr. Dee and Dr. Ana María Rossi regarding treatment for non-small lung cancer. 9. We will start him on Iron C b.i.d. and multivitamin once daily. 10. Bowel regimen as well. 11. Further recommendations pending hospital course. cc: MD Sigifredo Way MD Heather Shah, MD Sammy Becdach, MD Bridget Fox MTDD
[2016-10-08] MEDS: CARAFATE LIQUID PO SCH (20:53)
[2016-10-08] MEDS: DULCOLAX PR SCH (20:54)
[2016-10-08] MEDS: LIPITOR PO SCH (20:54)
[2016-10-08] MEDS: ICAR-C PO SCH (20:54)
[2016-10-09] MEDS: NS 1,000 ML IV SCH ×2 (01:43→18:49)
[2016-10-09] MEDS: ZOSYN 4.5 GM/NS 4.5 GM/100 ML IVPB IV SCH ×4 (01:43→18:49)
[2016-10-09] MEDS: CARAFATE LIQUID PO SCH ×4 (01:44→21:07)
[2016-10-09] MEDS: DUONEB (A & A) INH SCH ×4 (03:19→21:09)
[2016-10-09] MEDS: SODIUM CHLORIDE 0.9% INJ SCH ×2 (06:01→17:08)
[2016-10-09] MEDS: NEXIUM IV SCH ×2 (06:02→17:08)
[2016-10-09] MEDS: HUMULIN R SUBQ SCH ×4 (06:03→21:13)
[2016-10-09 06:05] LABS: HEMATOCRIT 30.6 % (42.0-52.0); MCH 31.9 PG (27-31); MCHC 32.7 g/dL (33-37); MCV 97.8 FL (81-99); MPV 8.4 FL (7.4-10.4); RBC 3.13 XMIL (4.7-6.1)
[2016-10-09 06:29] LABS: AGAP 13; ALBUMIN 2.4 g/dL (3.5-5.0); ALKALINE PHOSPHATASE 115 U/L (32-122); BUN 12 mg/dL (8-22); CALCIUM 8.8 mg/dL (8.8-10.2); CHLORIDE 97 mmol/L (98-107); COSMO 274; GOT 15 U/L (10-34); GPT 10 U/L (10-44); POTASSIUM 3.1 mmol/L (3.5-5.1); SODIUM 135 mmol/L (136-145); TCO2 25 mmol/L (25-35); TOTAL BILIRUBIN 0.57 mg/dL (0.20-1.00); TOTAL PROTEIN 6.3 g/dL (6.3-8.3)
[2016-10-09] MEDS ORDERED: METFORMIN HCL PO SCH (08:00)
[2016-10-09] MEDS ORDERED: SITAGLIPTIN PHOS PO SCH (08:00)
[2016-10-09] MEDS: JANUVIA PO SCH ×2 (08:08→16:53)
[2016-10-09] MEDS: TOPROL XL PO SCH (08:08)
[2016-10-09] MEDS: GLUCOPHAGE PO SCH ×2 (08:09→16:53)
[2016-10-09] MEDS: ASPIRIN EC PO SCH (08:09)
[2016-10-09] MEDS: ELDERTONIC PO SCH (08:09)
[2016-10-09] MEDS: ICAR-C PO SCH ×2 (08:18→21:08)
[2016-10-09] MEDS ORDERED: MBX SOLUTION MT PRN (10:15)
[2016-10-09] MEDS ORDERED: POTASSIUM CHLORIDE 20 MEQ/SWI 20 MEQ/100 ML IVPB IV ONE (10:23)
[2016-10-09] MEDS ORDERED: DECADRON IV ONE (10:23)
[2016-10-09] MEDS: LOVENOX SUBQ SCH (13:06)
--- NOTE | 2016-10-09 13:15 | PROGRESS NOTE ---
DATE: 10/09/2016 SUBJECTIVE: The patient himself states he feels groggy and that he is sleeping a lot more and he has noticed that his right arm and leg feel weaker. The at the bedside also reports that he has been able to swallow the clear liquid diet okay without getting choked and also has been drinking Ensure that was added by GI yesterday. OBJECTIVE: Vital Signs: Temperature 98.8 degrees, pulse 115, blood pressure 134/72, O2 saturation 96% on 2 L per nasal cannula. LABORATORIES AND DIAGNOSTICS: CBC. White count 14.84, hemoglobin and hematocrit 10 and 30.6, platelets 411,000. BMP. Sodium 135, potassium 3.1, chloride 97, BUN is 12, creatinine 1, glucose 174. LFTs within normal limits. PHYSICAL EXAMINATION: HEENT: Normocephalic, atraumatic. Mucous membranes slightly moist. Face symmetrical. Neck: Supple. No JVD. Chest: Bilateral breath sounds diminished. No accessory muscle use noted. Cardiovascular: Normal S1, S2. Abdomen: Abdomen soft, nontender, nondistended. Positive bowel sounds. Extremities: Right upper extremity swelling noted, mild weakness noted to right upper and right lower extremity that seems to be a little bit more weak than yesterday. Neurologic: The patient is lethargic but awakens to voice and is oriented x3. Focal findings as listed above with extremities. No other focal findings. ASSESSMENT AND PLAN: 1. Metastatic lung cancer to brain. We have consulted oncology due to the increase in his upper and lower extremity weakness. We will try to have radiologist read MRI that patient had done within the week to see if this is related to his brain metastasis. He stated that previously when he had increased swelling he did have the same area of weakness with increased swelling of the brain tumor previously. We will start Decadron to see if this helps. 2. Persistent right lower lobe pneumonia. We will continue with IV antibiotics and blood cultures are pending. 3. Dysphagia. This is likely secondary to radiation and will continue with GI recommendations as well and plans for EGD. He is swallowing the Ensure and liquids without trouble. 4. Borderline diabetes. With the addition of Decadron will definitely increase his sliding scale to moderate protocol and continue to follow. 5. Unilateral arm swelling. Venous Doppler of his upper extremities ordered. He does have a PICC line placed in that extremity. Further orders pending physician evaluation. Dictated by JOANNA Erazo for Sigifredo Diop MD cc: JOANNA Erazo MD
[2016-10-09] MEDS: CALMOSEPTINE OINTMENT TOP PRN (16:54)
[2016-10-09] MEDS: DECADRON IV SCH ×2 (16:57→21:08)
--- NOTE | 2016-10-09 19:17 | PROGRESS NOTE ---
DATE: 10/09/2016 SUBJECTIVE: Patient resting in bed. He was able to keep liquids down. He complains of dysphagia and dryness in the back of throat, tongue and mouth area. He denies any vomiting today. He denies any fevers, rigors, chills. He had a liquid soft stool with no blood. OBJECTIVE: Vitals: Temperature 98.8 degrees, pulse 115, respiratory rate 22, blood pressure 134/72, saturating 96% on nasal cannula. General Appearance: Moderately built, moderately nourished, lying in bed, in no acute distress. HEENT: Pale conjunctivae. No icterus. Neck: Supple. Abdomen: Obese, soft, nontender, nondistended. Bowel sounds heard. Extremities: No cyanosis, clubbing. Neurologic: He is alert, awake, oriented. LABORATORY: Hemoglobin and hematocrit 10 and 13.6, white count of 14.84, platelet count of 411,000. Sodium 135, potassium 3.1, chloride 97, bicarb 25, anion gap of 13, BUN of 12, creatinine 1, glucose 134, calcium is 8.8, total bilirubin is 0.57, AST 15, ALT 10, alkaline phosphatase 115. Total protein 6.3, albumin of 2.4. IMPRESSION AND PLAN: 1. Metastatic small cell lung cancer, metastases to the brain. He is status post radiation to the brain and status post radiation to the mediastinal area. There was radiation 4 weeks ago. He is being followed by Dr. Dee and Ana María Rossi MD. 2. Odynophagia, dysphagia. I believe it could be secondary to radiation esophagitis. We will keep him on Protonix, Carafate and Magic mouthwash. Keep him on a liquid diet. We will schedule him for esophagogastroduodenoscopy tomorrow with possible dilation. 3. Gastrointestinal prophylaxis with proton pump inhibitor. 4. Right lower lobe pneumonia with leukocytosis, currently on antibiotics. Blood cultures are currently pending. 5. Borderline diabetes, per the primary care team. 6. Anemia. I will start him on Iron C b.i.d. and multivitamins daily. 7. Further recommendation to follow pending hospital course. cc: MD Sigifredo Way MD Heather Shah, MD Sammy Becdach, MD Bridget Fox, CRNP
[2016-10-09] MEDS: LIPITOR PO SCH (21:08)
[2016-10-09] MEDS: DULCOLAX PR SCH (21:21)
[2016-10-10] MEDS: ZOSYN 4.5 GM/NS 4.5 GM/100 ML IVPB IV SCH ×4 (00:18→18:34)
[2016-10-10] MEDS: CALMOSEPTINE OINTMENT TOP PRN (00:23)
[2016-10-10] MEDS: CARAFATE LIQUID PO SCH ×4 (02:35→21:21)
[2016-10-10] MEDS: DECADRON IV SCH ×4 (05:03→21:22)
[2016-10-10] MEDS: NEXIUM IV SCH ×2 (05:03→18:34)
[2016-10-10 06:02] LABS: BASO% 0.1 % (0.0-0.8); HEMATOCRIT 25.2 % (42.0-52.0); HEMOGLOBIN 8.3 g/dL (14.0-18.0); IMM GRAN# 0.17 X1000 (0.0-0.04); IMM GRAN% 1.8 % (0.0-0.5); LYMPH# 0.65 X1000 (1.2-3.4); LYMPH% 6.9 % (20.5-51.1); MANUAL DIFF NEEDED? YES; MCH 31.4 PG (27-31); MCHC 32.9 g/dL (33-37); MCV 95.5 FL (81-99); MONO% 4.3 % (1.7-9.3); MPV 8.4 FL (7.4-10.4); NEUT% 86.9 % (42.2-75.2); PLT 391 X1000 (130-400); RBC 2.64 XMIL (4.7-6.1)
[2016-10-10] MEDS: DUONEB (A & A) INH SCH ×4 (06:03→22:00)
[2016-10-10 06:12] LABS: AGAP 11; BUN 12 mg/dL (8-22); CALCIUM 8.4 mg/dL (8.8-10.2); CHLORIDE 106 mmol/L (98-107); COSMO 290; POTASSIUM 3.3 mmol/L (3.5-5.1); SODIUM 142 mmol/L (136-145); TCO2 25 mmol/L (25-35)
[2016-10-10] MEDS: HUMULIN R SUBQ SCH ×3 (06:25→16:20)
[2016-10-10 07:21] LABS: BANDS 2 % (0-1); HYPOCHROM 1+; LYMPHS 4 % (21-51); MONO 2 % (1-9)
--- NOTE | 2016-10-10 07:53 | EKG Report ---
Test Performed on : 10/10/2016 07:40:47 AM Test Reason : pre op Blood Pressure : / mmHG Vent. Rate : 063 BPM Atrial Rate : 063 BPM P-R Int : 176 ms QRS Dur : 092 ms QT Int : 446 ms P-R-T Axes : 045 044 020 degrees QTc Int : 456 ms Normal sinus rhythm. Normal ECG When compared with ECG of 01-OCT-2016 18:48, (Unconfirmed) premature atrial complexes. are no longer present Vent. rate has decreased BY 60 BPM Confirmed by Patricia Black MD ([id number]) on 10/10/2016 8:50:55 AM
[2016-10-10] MEDS ORDERED: POTASSIUM CHLORIDE 40 MEQ/SWI 40 MEQ/100 ML IVPB IV ONE (09:34)
[2016-10-10] MEDS: JANUVIA PO SCH ×2 (09:59→16:20)
[2016-10-10] MEDS: GLUCOPHAGE PO SCH ×2 (09:59→16:20)
[2016-10-10] MEDS: TOPROL XL PO SCH (10:05)
[2016-10-10] MEDS ORDERED: XYLOCAINE-MPF 2% ONE (10:46)
[2016-10-10] MEDS ORDERED: DIPRIVAN 1% ONE (10:46)
[2016-10-10] MEDS: ASPIRIN EC PO SCH (11:25)
[2016-10-10] MEDS: ELDERTONIC PO SCH (11:42)
[2016-10-10] MEDS: ICAR-C PO SCH ×2 (11:42→21:21)
[2016-10-10] MEDS: NS 1,000 ML IV SCH ×3 (11:43→21:23)
[2016-10-10] MEDS ORDERED: TUMS PO PRN (13:20)
[2016-10-10] MEDS: LOVENOX SUBQ SCH (13:36)
[2016-10-10] MEDS: MBX SOLUTION MT SCH ×3 (13:37→21:22)
[2016-10-10] MEDS: NON-FORMULARY BULK MED MISC SCH ×2 (13:38→16:25)
--- NOTE | 2016-10-10 16:18 | PROGRESS NOTE ---
DATE: 10/10/2016 SUBJECTIVE: Patient reports feeling much better. No headache reported. He is still having problems with swallowing. OBJECTIVE: Vital Signs: Temperature 97.6 degrees, heart rate 51, respiratory rate 20, blood pressure 169/72, O2 saturation 94% on room air. General Examination: This is a chronically ill- looking and frail 66-year-old male, lying in bed, in no acute distress. HEENT: Head is normocephalic and atraumatic, anicteric sclerae and pale conjunctivae. Mucous membranes moist. Neck is supple. No JVD noted. No carotid bruits. No lymphadenopathy. No thyromegaly. Cardiac: Cardiovascular exam is S1, S2 heard. No murmurs, gallops or rubs. Regular rate and rhythm. Respiratory: Some coarse breath sounds noted but patient is not using any accessory muscles or having work of breathing. Extremities: Right upper extremity swelling noted. Neurologic: The patient is awake and oriented x3. Moves 4 extremities. LABORATORY DATA: White cell count 9.36, hemoglobin 8.3, hematocrit 25.2, platelets 391,000 with BMP that shows potassium 3.2. ASSESSMENT AND PLAN: 1. Metastatic lung cancer to the brain. Because of this increase in the upper and lower extremity weakness, the patient had recently MRI that was done in an outside facility, and we were trying to get a report from there. In any case, the patient has been placed on Decadron, and we will we will wait for the results of the MRI. 2. Right lower pneumonia. We will continue with antibiotics. Blood cultures are still pending. 3. Dysphagia. GI has been consulted and they recommend an endoscopy to see if the dysphagia secondary to radiation that this patient got. In any case, we will see what the EGD shows today. 4. Generalized weakness. I think that this patient is declining quickly so a palliative care consult has been ordered. By now this patient is stable but overall prognosis is poor. He has a lung cancer with brain mets and we are waiting MRI report to see if those are producing a mass effect on the brain. In any case, we decided to start this patient on Decadron, and the patient clinically looks good today. He is feeling better. Pneumonia in this patient is resolving in the right lower lobe. The white count is normal. Also awaiting recommendations from his oncology doctor. cc: Sigifredo Diop MD MTDD
--- NOTE | 2016-10-10 16:34 | OPERATIVE NOTE ---
PROCEDURE DATE: 10/10/2016 PROCEDURE: Esophagogastroduodenoscopy with esophageal dilation. PREOPERATIVE DIAGNOSES: 1. Odynophagia. 2. Dysphagia. 3. Dryness of the mouth. 4. Small cell lung cancer, status post chemoradiation, radiation finished 4 or 5 weeks ago also received brain radiation prophylactically. 5. Diabetes. 6. Anemia. 7. Decreased p.o. intake. POSTOPERATIVE DIAGNOSES: 1. Oral mucositis noted. 2. Dry oral mucosa noted. 3. Questionable ring in the distal esophagus, which was dilated with 54-Hungarian dilator. 4. Z-line visualized at 40 cm irregular. 5. Small amount of bile in the stomach. Otherwise, stomach was normal. Normal fundus, cardia, incisura. 6. Duodenitis, mild in duodenal bulb. 7. Normal 2nd portion of duodenum. ESTIMATED BLOOD LOSS: None. COMPLICATIONS: None. ANESTHESIA: Monitored anesthesia care by the anesthesiologist. SPECIMEN: None. DESCRIPTION OF PROCEDURE: After informed consent, the patient explained the risks, benefits, and alternatives of procedure, the patient was prepared for EGD. The patient was brought to the OR. He was turned to the left lateral position, a bite block was placed. After adequate monitored anesthesia care, the scope was introduced into the oral vestibule and traversed all the way to the second portion of the duodenum. The esophagus was normal in the proximal 3rd. The distal esophagus showed evidence of partial ring in the distal esophagus. The Z-line was at 44 cm. There was evidence of irregular Z line. The scope was advanced into the stomach, evidence of small amount of bile in the stomach, which was suctioned out. Otherwise the stomach mucosa appeared normal. Retroflexion showed normal fundus, cardia, incisura. There was no evidence of any pyloric stenosis, no evidence of any ulcers. Duodenal bulb showed evidence of mild erythema suggesting mild duodenitis, 2nd portion of duodenum normal. The oral mucosa appeared to be dry and irritated with erythema noted over the soft and hard palate and all over the base of the tongue suggesting oral mucositis. This could be a side effect from the chemotherapy and radiation therapy. The air was aspirated as the scope was withdrawn. Patient tolerated the procedure, currently monitored in the OR in stable condition. I discussed the finding with the patient's family. RECOMMENDATIONS: 1. The patient will be on oral Biotene 3 times daily. 2. The patient will be on Magic mouthwash 15 mL 3-4 times daily. 3. We will start on pureed diet, advance as tolerated. 4. Aspiration precautions. 5. We will keep on Nexium as before. 6. We will keep him on Iron C b.i.d. 7. We will give him Glucerna 3 times daily. 8. Further recommendations pending hospital course.. cc: MD Ana María Way MD Sammy Becdach, MD MTDD
[2016-10-10] MEDS ORDERED: TYLENOL PO PRN (16:58)
[2016-10-10] MEDS ORDERED: TYLENOL PO ONE (17:01)
--- NOTE | 2016-10-10 17:07 | CONSULTATION ---
DATE OF CONSULTATION: 10/10/2016 REQUESTED BY: Hospital Service. REASON FOR CONSULTATION: Lung cancer with brain METS, patient known. HISTORY OF PRESENT ILLNESS: Mr. Wheeler is a 66-year-old male who is known to us as we have been treating him for metastatic non-small cell lung cancer. The patient is now status post neoadjuvant treatment, whole-brain radiation and 1 cycle of Opdivo at this time. He was actually admitted last week on 10/01/2016 with pneumonia. In discussing with the patient and his today, the patient did walk himself to his car prior to his admission last week. By the time he left the hospital, the patient was quite weak. The patient and his report that they felt like it was okay to go home and have home health do physical therapy. However, upon arrival at home the patient was quite weak and actually needed help getting in and out of his car, and his house. The patient did contact our office after his discharge to report the weakness. We ordered an outpatient MRI as soon as possible. This was done on Monday10/07/2016. The patient continued to have increased weakness as well as dysphagia and he presented to the emergency department on 10/08/2016 where he was subsequently admitted for further evaluation and treatment given his increased weakness and deconditioning. Patient also noted to have some increased swelling in his right arm where he previously had a PICC line placed. The patient reports he is feeling better now. He recently had his esophagus stretched. He is able to now eat better. He seems more alert per his and is able to function more. The patient has been started on high -dose steroids since his most recent admission. PAST MEDICAL HISTORY: 1. Lung cancer with brain metastasis. 2. Skin cancer on the back removed a few years ago. 3. Bladder cancer in 2004 where he received 19 sessions of BCG. 4. Coronary artery disease status post stent placed in 2003. 5. Diabetes mellitus. 6. Hypertension. 7. GERD. 8. Degenerative disc disease. PAST SURGICAL HISTORY: 1. Prostatectomy. 2. Tonsillectomy 1955. 3. Cervical fusion in . 4. Mohs surgery for DFSP in 1997. SOCIAL HISTORY: Patient is a former smoker but quit about 4 years ago. He denies any current alcohol or drug use. Patient is and lives with his spouse. FAMILY HISTORY: Mother of breast cancer at the age of 62. His father of heart disease at age of 74. He also has siblings who have heart disease. REVIEW OF SYSTEMS: Twelve point review of systems has been completed and is negative except for what was expressed in HPI. PHYSICAL EXAMINATION: Vital Signs: Temperature 97.6 degrees, heart rate 72, respirations 20, blood pressure 129/66, oxygen saturation is 97% on 2 L nasal cannula. General: male sitting up in hospital bed eating lunch. He does not appear to be in any acute distress. His is at bedside. HEENT: Head normocephalic, atraumatic. Eyes: Pupils appear to be equal, round, reactive. Ears, nose, throat, neck, mouth: Oral mucosa is normal. Gross auditory acuity is intact. Trachea is midline. Cardiovascular: S1-S2 heard. No murmurs, gallops, rubs appreciated. Regular rate and rhythm. Respiratory: Chest with some coarse breath sounds bilaterally. Gastrointestinal: Abdomen is soft, nontender, nondistended with positive bowel sounds. Musculoskeletal: No bony abnormalities noted. Extremities: Some trace edema of bilateral lower extremities. He also has trace edema in his upper extremities as well. Neurologic: Patient appears to be alert and oriented x3 with no focal motor deficits noted. No slurred speech. Patient able to move bilateral upper extremities well without any difficulties. LABS AND STUDIES: The patient had a right upper extremity venous Doppler completed but the report is not in the system at this time. He has also had an outside brain MRI which we will request a copy for review. LAB STUDIES: White blood cells 9.36, hemoglobin 8.3, hematocrit 25.2, platelets 391,000. Sodium 142, potassium 3.3, chloride 106, CO2 25, BUN 12, creatinine 0.9, glucose 225. ASSESSMENT/PLAN: 1. Metastatic non-small cell lung cancer, status post neoadjuvant treatment with cisplatin and Taxotere as well as whole-brain radiation and now 1 treatment of Opdivo on . Treatment currently on hold. We will have the patient follow up as an outpatient to consider reinitiating any treatment at that time. 2. Pneumonia. He continues on IV antibiotics at this time. 3. Weakness as well as difficulty moving his limbs. This has now improved since initiation of dexamethasone 4 mg q.6 hours. Again, we will request the MRI report for review. Patient is currently undergoing PT. 4. Dysphagia. The patient reports this seems to be improved after having his esophageal stretched earlier today. He will continue on a soft diet. Gastroenterology is on board. We want to thank you for consulting us on Mr. Wheeler while he is here at [facility]. We will continue to follow along and adjust our treatment plan per his hospital course. Dictated by RADHA Pacheco for Ana María Rossi MD cc: Ana María Rossi MD I have seen and examined the patient and agree with the above A/P. Ana María FERGUSON
[2016-10-10] MEDS: LIPITOR PO SCH (21:22)
[2016-10-10] MEDS: DULCOLAX PR SCH (21:22)
[2016-10-11] MEDS: ZOSYN 4.5 GM/NS 4.5 GM/100 ML IVPB IV SCH ×4 (03:00→21:23)
[2016-10-11] MEDS: DUONEB (A & A) INH SCH ×4 (03:26→21:59)
[2016-10-11] MEDS: CARAFATE LIQUID PO SCH ×4 (05:54→21:23)
[2016-10-11] MEDS: DECADRON IV SCH ×4 (05:54→21:26)
[2016-10-11] MEDS: HUMULIN R SUBQ SCH ×5 (05:57→21:26)
[2016-10-11] MEDS: NEXIUM IV SCH ×2 (05:57→18:26)
--- NOTE | 2016-10-11 06:53 | Extremity Venous Study ---
PROCEDURE NAME: Venous U/S Right Arm - 10/10/2016 REQUESTING PHYSICIAN: Dr. Khanna. RESIDENTIAL DOOR INSTALLER: Kendrick. INDICATION: PICC line, with edema. PROCEDURE: Right upper extremity venous duplex and color flow imaging. EQUIPMENT: Smule Vivid E9 ultrasound system, with a 9LD transducer. FINDINGS: Images of the right upper extremity venous system with comparison to the left subclavian vein were obtained in both sagittal and transverse planes. Doppler was used to evaluate veins for spontaneity, phasicity, respiratory excursion, and digital augmentation. RESULTS: Normal venous compression, normal venous flow. No obvious superficial or deep venous thrombosis. INTERPRETATION: Normal right upper extremity venous study. cc: MD Jagruti Nathan CRNP
[2016-10-11] MEDS: ASPIRIN EC PO SCH (08:54)
[2016-10-11] MEDS: JANUVIA PO SCH ×2 (08:54→18:24)
[2016-10-11] MEDS: ELDERTONIC PO SCH (08:54)
[2016-10-11] MEDS: GLUCOPHAGE PO SCH ×2 (08:54→18:25)
[2016-10-11] MEDS: ICAR-C PO SCH ×2 (08:54→21:23)
[2016-10-11] MEDS: TOPROL XL PO SCH (08:54)
[2016-10-11] MEDS: MBX SOLUTION MT SCH ×4 (08:55→21:24)
[2016-10-11] MEDS: NS 1,000 ML IV SCH ×3 (09:00→21:26)
[2016-10-11] MEDS: NON-FORMULARY BULK MED MISC SCH ×3 (09:16→18:25)
[2016-10-11] MEDS: LOVENOX SUBQ SCH (12:50)
--- NOTE | 2016-10-11 16:16 | PROGRESS NOTE ---
DATE: 10/11/2016 SUBJECTIVE: Today Mr. Wheeler refers to be doing a lot better. Denies any chest pain or shortness of breath, and he says his strength in his upper extremity is a lot better. OBJECTIVE: Vital signs: Blood pressure is 138/71, pulse of 80, respiration is 14 and temperature 97.2 degrees. Patient is saturating 99% on room air. General exam: Mr. Wheeler is a 66-year-old male. He is in bed, not seemingly distressed. HEENT: Mucosa is pink and moist. Anicteric. Acyanotic. Neck: Supple. Chest: Air entry is reduced to the right posterior lung field. Cardiovascular: Regular rate and rhythm. Abdomen: Soft, nontender. Extremities: No pedal edema. CLAIM AGENT: Patient is alert and awake and oriented x4. No focal neurological deficit. IMAGING STUDIES: 1. Doppler studies of the lower extremity were negative. 2. A chest x-ray showed slough as well as infiltrates in the right lower lobe. ASSESSMENT: 1. Metastatic lung cancer to the brain. 2. Right lower lobe pneumonia. 3. Dysphagia. 4. Generalized weakness. 5. Xerostomia. Unsure if this is side effects of medication versus possible adverse reaction of the radiation therapy. 6. Hyperglycemia, likely from the steroid. We will put the patient on glargine on top of sliding scale insulin for better glycemic control. cc: Dm Duque MD [facility]
--- NOTE | 2016-10-11 16:29 | PROGRESS NOTE ---
DATE: 10/11/2016 SUBJECTIVE: Mr. Wheeler is sitting in his hospital bed. He reports that he is doing well today. He has no new complaints. OBJECTIVE: Vital Signs: Temperature 97.6 degrees, heart rate 62, respirations 20, blood pressure 154/81, O2 saturation 97% on 2 L nasal cannula. LABS: No new labs for today. PHYSICAL EXAMINATION: CV: S1, S2 heard. No murmurs, gallops, rubs appreciated. Respiratory: Chest essentially clear to auscultation bilaterally. Normal respiratory effort. Gastrointestinal: Abdomen soft, nontender. Nondistended. Extremities: Patient has trace edema times 4 extremities. ASSESSMENT AND PLAN: 1. Metastatic non-small cell lung cancer. Patient has received 1 dose of Opdivo. He does have worsening in his brain metastasis per an MRI done as an outpatient. Recommend continuing the dexamethasone 4 mg q.6 hours. Opdivo can cross the central nervous system barrier and will be a good treatment for him once he has regained some of his strength and recovers completely from his pneumonia. The patient just completed whole-brain radiation and would not be in a position to receive any more brain radiation. 2. Pneumonia. Repeat sputum cultures have thus far been negative. Continue IV antibiotics. 3. Brain metastasis. As per above. Continue high-dose dexamethasone at 4 mg q.6 hours. 4. Weakness and deconditioning. Patient has a poor performance status at this time. He continues to work with physical therapy. His functioning has improved especially since starting the dexamethasone. Continue to monitor. The patient will need to be up and functioning prior to leaving as there is no help at his home to help him get around. Dictated by RADHA Pacheco for Ana María Rossi MD cc: Ana María Rossi MD I have seen and examined the patient and agree with the above A/P. Ana María FERGUSON
[2016-10-11] MEDS: EVOXAC PO SCH (18:25)
[2016-10-11] MEDS ORDERED: LANTUS SUBQ SCH (21:00)
[2016-10-11] MEDS: LIPITOR PO SCH (21:23)
[2016-10-11] MEDS: DULCOLAX PR SCH (21:27)
[2016-10-11] MEDS ORDERED: INSULIN PEN NEEDLES ONE (23:02)
[2016-10-12] MEDS: ZOSYN 4.5 GM/NS 4.5 GM/100 ML IVPB IV SCH ×4 (01:45→18:40)
[2016-10-12] MEDS: DUONEB (A & A) INH SCH ×4 (03:39→22:27)
[2016-10-12] MEDS: DECADRON IV SCH ×4 (04:49→20:02)
[2016-10-12] MEDS: CARAFATE LIQUID PO SCH ×4 (04:49→20:02)
[2016-10-12] MEDS: NEXIUM IV SCH ×3 (04:50→18:41)
[2016-10-12] MEDS: SODIUM CHLORIDE 0.9% INJ SCH ×2 (04:50→18:41)
[2016-10-12] MEDS ORDERED: MYCAMINE 100 MG in NS 100 ML IV SCH (08:45)
[2016-10-12] MEDS: TOPROL XL PO SCH (09:47)
[2016-10-12] MEDS: JANUVIA PO SCH ×2 (09:47→16:43)
[2016-10-12] MEDS: ASPIRIN EC PO SCH (09:47)
[2016-10-12] MEDS: EVOXAC PO SCH ×3 (09:47→18:38)
[2016-10-12] MEDS: ICAR-C PO SCH ×2 (09:47→20:03)
[2016-10-12] MEDS: GLUCOPHAGE PO SCH ×2 (09:48→16:40)
[2016-10-12] MEDS: MBX SOLUTION MT SCH ×4 (09:58→20:03)
[2016-10-12] MEDS: NS 1,000 ML IV SCH ×2 (10:08→14:30)
[2016-10-12] MEDS: NON-FORMULARY BULK MED MISC SCH ×3 (10:18→18:25)
[2016-10-12] MEDS: ELDERTONIC PO SCH (10:19)
[2016-10-12] MEDS: HUMULIN R SUBQ SCH ×4 (11:32→20:03)
--- NOTE | 2016-10-12 12:45 | PROGRESS NOTE ---
DATE: 10/12/2016 SUBJECTIVE: Mr. Wheeler is lying in the hospital bed. He is in no acute distress. He has family at bedside. The patient has no new complaints. VITAL SIGNS: Temperature 97.6 degrees, heart rate 77, respirations 14, blood pressure was 165/83, O2 saturation 97% on 2 L nasal cannula. LABORATORY DATA: Blood glucose is 299 today. PHYSICAL EXAMINATION: CV: S1, S2 heard. No murmurs, gallops, rubs appreciated. Respiratory: Chest is essentially clear to auscultation bilaterally. No rhonchi, rales, or wheezing noted. Gastrointestinal: Abdomen is soft and nontender. Nondistended. Positive bowel sounds. Extremities: Patient has some trace bilateral extremity edema. His right upper extremity has some trace edema. Left upper extremity is unremarkable. ASSESSMENT AND PLAN: 1. Metastatic [id number]-rrkj lung cancer, METS to the brain. The patient has previously received neoadjuvant treatment. He has also previously received whole-brain radiation. He does have a recent MRI that shows some new brain metastasis. Plan is to treat the patient as an outpatient once his performance status improves. 2. Pneumonia. This seems to be improving. Most recent sputum culture is negative. He continues on IV antibiotics. 3. New brain METS. Continue high-dose steroids at 4 mg q.6 hours. 4. Hyperglycemia. Adjustments to diabetes medications as per the primary team. 5. Deconditioning/decline in performance status. The patient is participating in physical therapy while here at the hospital. He is starting to improve. He also had improvement after his steroids. Encouraged him to continue with PT. I discussed the possibility of placement for more intensive physical therapy after he leaves the hospital. Dictated by RADHA Pacheco for Ana María Rossi MD cc: Ana María Rossi MD I have seen and examined the patient and agree with the above A/P. Ana María FERGUSON
--- NOTE | 2016-10-12 13:21 | PROGRESS NOTE ---
DATE: 10/12/2016 SUBJECTIVE: Today Mr. Wheeler refers to be doing a little better. He feels slightly stronger than before. According to him, the dryness in the mouth is also a little better since we started the Biotin and the evoxac. OBJECTIVE: Vital signs: Blood pressure is 165/83, pulse of 74, respirations 20 , temperature 97.6 degrees. Patient is saturating 97% on nasal cannula. General: Mr. Wheeler is a 66-year-old male. He is in bed. He did not seem to be in any distress. BMI of 33.3. Chest: Air entry is bilaterally reduced. There are crepitations more so in the right upper lung field. Cardiovascular: Regular rate and rhythm. No murmurs. No rubs. Abdomen: Soft , nontender. Extremities: No pedal edema. PROJECT DEVELOPMENT DIRECTOR: Patient is awake and alert and oriented x4. There is no focal neurological deficit. LABORATORY DATA: None. Glucose is 229. ASSESSMENT: 1. Metastatic non-small cell lung cancer to the brain. 2. Right upper lobe pneumonia, possibly postobstructive pneumonia. 3. Dysphagia, improved. 4. Generalized weakness. 5. Xerostomia. Likely due to radiation side effects. 6. Hyperglycemia. We will increase the glargine to 15 every night. PLAN: We are awaiting physical therapy evaluation today. The plan is to get Mr. Wheeler to a rehab and get try to improve on his physical strength as he continues with his therapy. His sputum culture also showed 2+ of yeast so I have started him on micafungin for possible Sharon pneumonia. Will consult Dr. Marley, infectious disease, to evaluate the patient as well. cc: Dm Duque MD [facility]
[2016-10-12] MEDS: LOVENOX SUBQ SCH (16:11)
[2016-10-12] MEDS: MAXIPIME 2 GM/NS 2 GM/100 ML IVPB IV SCH (18:29)
--- NOTE | 2016-10-12 18:37 | PROGRESS NOTE ---
DATE: 10/12/2016 PRESENT ILLNESS: The patient was being treated for pneumonia and he was at home taking IV Zosyn and p.o. Zyvox. He came in because of increased congestion and swelling in his face and right arm. Also the patient was found to have yeast in his sputum. MEDICATIONS: The patient is on IV Zosyn as a single agent. PHYSICAL EXAMINATION: Vital Signs: Temperature is 97.8 degrees, pulse 81, respirations 14, blood pressure 137/68. General: This is an ill-appearing, elderly male. He is in no acute distress. Head, eyes, ears, nose, and throat: He can hear my spoken words and see near objects. Extremities: The right arm is swollen. Lungs: Clear to auscultation. Cardiovascular: Heart rate is regular. Abdomen: Soft and nontender. LAB AND X-RAY: Sputum grew normal lizzy and yeast. CBC shows a white count of 9360, hemoglobin 8.3, and platelet count 391,000. Chest x-ray shows a right lower lobe pneumonia. ASSESSMENT AND PLAN: The patient has metastatic lung cancer to the brain. He appears to have a superimposed pneumonia. I think as far as the yeast isolated in the patient's sputum, there is a very low correlation between finding yeast in sputum and having a fungal pneumonia. Therefore my plan would be to stop micafungin. Since the patient got worse on Zosyn and Zyvox, I have discontinued Zosyn. The patient is not on Zyvox currently, and have started the patient on cefepime. I have ordered a CT scan of the chest to specifically look for not only infiltrates in the lung but also to see if there is some type of vascular blockage such as of the superior vena cava. COMORBIDITIES: His lung cancer which is metastatic to the brain. Patient also has diabetes mellitus and gastroesophageal reflux disease. cc: Janak Marley MD
[2016-10-12] MEDS: LANTUS SUBQ SCH (20:03)
[2016-10-12] MEDS: LIPITOR PO SCH (20:03)
--- NOTE | 2016-10-12 22:33 | PROGRESS NOTE ---
DATE: 10/12/2016 SUBJECTIVE: Patient resting in bed. He had 2 soft bowel movements today, no blood noted. He has been eating better. He is on pureed diet. He has been on Dulcolax suppository , at this time we will stop now as the patient is having diarrhea. The patient denies any nausea or vomiting. His oral intake has improved since esophageal dilation, Biotene, and Magic Mouthwash. OBJECTIVE: Vitals: Temperature 98.7. Respiratory rate 19. Blood pressure 137/68. Saturating 96% on 2 liters nasal cannula. General Appearance: Moderately built, moderately nourished, lying in bed, in no acute distress. HEENT: Pale conjunctivae. No icterus. Neck: Supple. Abdomen: Obese, soft, nontender, nondistended. Bowel sounds heard. Extremities: No cyanosis, clubbing. Neurologic: He is alert, awake, oriented. LABORATORY: Hemoglobin and hematocrit 8.3 and 25.2. Glucose 299. IMPRESSION AND PLAN: 1. Metastatic nonsmall cell lung cancer with metastases to the brain status post neoadjuvent treatment and whole brain radiation, and radiation to the lung area. Because of the radiation he had xerostomia, dry mouth, and trouble swallowing but he has some improvement with esophageal dilation, Biotene and Magic Mouthwash and pureed diet, we will keep him on that and continue aspiration precautions. 2. Pneumonia in the right lower lobe, currently on antibiotics. 3. Gastrointestinal prophylaxis to continue. 4. Diarrhea. We will hold the Dulcolax for now. 5. Anemia. Continue to watch. 6. The above plan of care was discussed with the patient and family. cc: MD Ana María Way MD Raphael K. Quansah, MD MTDD
[2016-10-13] MEDS: NS 1,000 ML IV SCH ×3 (00:43→14:45)
[2016-10-13] MEDS: DUONEB (A & A) INH SCH ×4 (04:10→22:40)
[2016-10-13] MEDS: MAXIPIME 2 GM/NS 2 GM/100 ML IVPB IV SCH ×2 (04:57→18:27)
[2016-10-13] MEDS: DECADRON IV SCH ×4 (04:57→21:10)
[2016-10-13] MEDS: NEXIUM IV SCH ×3 (04:58→18:34)
[2016-10-13] MEDS: CARAFATE LIQUID PO SCH ×4 (04:58→21:10)
[2016-10-13 06:41] LABS: MANUAL DIFF NEEDED? NO
[2016-10-13 06:46] LABS: BASO% 0.4 % (0.0-0.8); HEMATOCRIT 30.9 % (42.0-52.0); HEMOGLOBIN 10.4 g/dL (14.0-18.0); IMM GRAN# 0.45 X1000 (0.0-0.04); IMM GRAN% 2.6 % (0.0-0.5); LYMPH# 1.11 X1000 (1.2-3.4); LYMPH% 6.3 % (20.5-51.1); MCH 32.3 PG (27-31); MCHC 33.7 g/dL (33-37); MONO# 1.26 X1000 (0.11-0.59); MONO% 7.2 % (1.7-9.3); MPV 8.6 FL (7.4-10.4); NEUT% 83.5 % (42.2-75.2); PLT 413 X1000 (130-400); RBC 3.22 XMIL (4.7-6.1)
[2016-10-13 06:57] LABS: AGAP 10; BUN 25 mg/dL (8-22); CALCIUM 8.5 mg/dL (8.8-10.2); CHLORIDE 97 mmol/L (98-107); COSMO 285; SODIUM 136 mmol/L (136-145); TCO2 29 mmol/L (25-35)
[2016-10-13] MEDS: HUMULIN R SUBQ SCH ×3 (06:57→16:54)
--- NOTE | 2016-10-13 08:22 | Diag Imaging Result Doc PS360 ---
EXAM: ANGIOGRAM/PULMONARY ARTERIES HISTORY: lung cancer, pneumonia, vascular obstruction TECHNIQUE: Dose reduction protocol. MIP images obtained. CT chest with contrast. COMPARISON: 10/01/2016 FINDINGS: Obstructing right hilar mass is again demonstrated. This measures at least 7 cm in diameter. There is mild narrowing to the main pulmonary artery as well as the major branches to the right upper, middle, and lower lobes. There is invasion of the right mainstem bronchus or there is at least prominent debris within it. There is obstruction and consolidation of the right upper lobe. Atelectasis to the right middle and lower lobes is also present. Interval increase in the size of the right-sided pleural effusion which now measures 4.5 cm posteriorly and inferiorly in the midline. Trace left pleural fluid. There are many bilateral scattered nodules. These are more numerous and larger than they were on the prior exam. Heart is not enlarged. No filling defects within the pulmonary arteries. IMPRESSION: Interval worsening compared to the prior exam. Electronically signed by Miguel Membreno 10/13/2016 8:20 AM
[2016-10-13] MEDS: JANUVIA PO SCH ×2 (10:25→17:02)
[2016-10-13] MEDS: TOPROL XL PO SCH (10:25)
[2016-10-13] MEDS: EVOXAC PO SCH ×3 (10:25→16:59)
[2016-10-13] MEDS: ASPIRIN EC PO SCH (10:25)
[2016-10-13] MEDS: GLUCOPHAGE PO SCH ×3 (10:25→17:03)
[2016-10-13] MEDS: ICAR-C PO SCH ×2 (10:25→21:10)
[2016-10-13] MEDS: ELDERTONIC PO SCH (10:26)
[2016-10-13] MEDS: MBX SOLUTION MT SCH ×3 (10:27→17:01)
[2016-10-13] MEDS: NON-FORMULARY BULK MED MISC SCH ×3 (10:33→17:00)
--- NOTE | 2016-10-13 11:56 | PROGRESS NOTE ---
DATE: 10/13/2016 SUBJECTIVE: The patient resting in bed. He is feeling better. His xerostomia is better. He is tolerating a liquid diet and pureed diet better. His white cell count has gone up. His imaging in showing worsening pneumonia. He denies any fevers, rigors, chills. He denies any nausea, vomiting, or vomiting blood. He is having diarrhea. He had multiple liquid small bowel stools last night. OBJECTIVE: Vital Signs: Temperature 97.8, pulse of 86, respirations 17, blood pressure 126/78, saturating 97% on room air. General: Moderately built, moderately nourished, lying in bed, in no obvious distress. HEENT: Mild pallor. No icterus. Neck: Supple. Abdomen: Obese, soft, nontender, nondistended. Bowel sounds heard. No guarding or rebound. Extremities: No cyanosis, clubbing. Neurologic: Alert, awake and oriented. LABORATORY DATA: Hemoglobin and hematocrit is 10.4 and 30.9, white count 17.6, platelet count of 413,000. Sodium 132, potassium 4, chloride 97, bicarbonate 20, anion gap 10, BUN of 25, creatinine 0.9, and calcium is 8.5. Pulmonary arteriogram done this morning showing interval worsening of the pneumonia and obstructing right hilar mass measuring 7 cm in diameter noted. Interval increase in size of right- sided pleural effusion measuring about 4.5 cms in the midline. Many bilateral scattered nodules. IMPRESSION AND PLAN: 1. Metastatic non-small lung cancer with brain metastases status post neoadjuvant treatment with chemotherapy and radiation and whole-brain radiation. His oral intake is improving. Continue pureed diet. We will continue on Biotene, Magic mouthwash 3 times daily. He will continue aspiration precautions. 2. Right lower lobe pneumonia on antibiotics. Followed by Dr. Marley. 3. Gastrointestinal prophylaxis to continue. 4. Diarrhea. We will check stool studies. We will hold Dulcolax and place him on Culturelle b.i.d. 5. Anemia improving. We will continue to watch and keep on Iron C b.i.d. Discussed the above plan wit the patient and family. cc: MD Janak Way MD Raphael K. Quansah, MD [facility]
[2016-10-13] MEDS: LOVENOX SUBQ SCH (14:53)
--- NOTE | 2016-10-13 15:43 | PROGRESS NOTE ---
DATE: 10/13/2016 SUBJECTIVE: Today Mr. Wheeler referred to be doing okay. He was actually sitting up in a chair at the time of the interview. He denies any shortness of breath. He continues to be weak and needed assistance to even stand up. OBJECTIVE: Vital signs: Blood pressure is 146/78, pulse 82, respirations 17, temperature 97.8 degrees. General: Mr. Wheeler is a 66-year-old male. He has been sitting up in the chair not in any distress. The was at his side at the time of the interview. Chest: Air entry is bilaterally reduced, more so to the right lung field. There are some crepitations. Cardiovascular: Regular rate and rhythm. No murmurs, no rubs. Abdomen: Soft , nontender. Extremities: No pedal edema. BUS OPERATOR: Patient is awake, alert and oriented. I did not appreciate any remarkable swelling in the patient's upper extremities nor his face. He does have a right PICC line, but the site is not inflamed and the arm is not swollen. LABORATORY DATA: WBC 17.6, hemoglobin is 10.4, platelet count of 413. Chemistry is reviewed, unremarkable except for glucose of 247. ASSESSMENT: 1. Metastatic non-small cell cancer to the brain status post whole brain radiation and chemotherapy. 2. Right upper lobe pneumonia, possible postobstructive pneumonia. Patient is currently on antibiotics. He has been seen by Dr. Marley. 3. Dysphagia is improved. 4. Generalized weakness likely due to underlying malignancy. 5. Radiation-induced xerostomia. This has improved with the Biotene and the Evoxac. 6. Hyperglycemia, improving. 7. Diarrhea. The patient refers to have had a lot of bowel movement yesterday, but this morning has not had any. There is an order for stool studies to be done. We are still pending for him to have a need to see him. I think it is probably secondary to the antibiotic side effects, but want to make sure there is no Clostridium difficile. 8. Protein calorie malnutrition. We will continue with supplements. PLAN: Of note, there was a CT scan that was ordered yesterday to rule out possibility of a superior vena cava syndrome. However, it showed there was interval worsening of the malignancy, which I did disclose it to him and the at the bedside. Will be pending his oncologist to also discuss with them what is going to be the plan going forward. I think the long-term plan is to Is have Mr. Wheeler discharged to a rehab from the hospital. Prognosis is poor. cc: Dm Duque MD MTDD
[2016-10-13] MEDS ORDERED: SODIUM CHLORIDE 0.9% INJ PRN (17:36)
[2016-10-13] MEDS ORDERED: PHENERGAN IV PRN (17:36)
[2016-10-13] MEDS: SODIUM CHLORIDE 0.9% INJ SCH (18:41)
--- NOTE | 2016-10-13 19:19 | PROGRESS NOTE ---
DATE: 10/13/2016 PRESENT ILLNESS: The patient is being treated for pneumonia. His CAT scan done yesterday shows that he is having an increase in the size of his right hilar mass which is obstructing the right lung. There is more consolidation on the right side also and there are bilateral multiple nodules in the lung. To me all this suggests is that the patient is having increase in his lung cancer, it is causing obstruction and also is responsible for the increase in the nodules in the lung. Patient complains of hiccuping a lot. I think it is possible that the hilar mass is putting pressure on the recurrent laryngeal nerve and causing the patient to hiccup. MEDICATIONS: The patient is on cefepime as a single agent. PHYSICAL EXAMINATION: Vital Signs: Temperature is 96.5 degrees, pulse 104, respirations 26, blood pressure 162/79. General: This is an ill-appearing, elderly male. He is hiccuping and vomiting. He also occasionally coughs. Lungs: There are diminished breath sounds on the right side. The left lung sounds clear. Cardiovascular: Heart rate is regular. Abdomen: Soft and nontender. Legs: Bilateral edema but no erythema. LAB AND X-RAY: CBC today shows a white count of 17,600, hemoglobin 10.4, and platelet count 413,000. Sputum grew normal lizzy and yeast. Creatinine 0.9. GFR is greater than 60. CT as mentioned above shows enlargement of the right hilar obstructing mass with increased consolidation and bilateral pulmonary nodules. ASSESSMENT AND PLAN: Unfortunately the patient's lung cancer is increasing in size and also there are more metastases as well. There may well be an infectious component to the problem the patient is having because of obstruction to the bronchi. For now I will plan to continue cefepime pending culture results. COMORBIDITIES: Patient's comorbidities include lung cancer which is metastatic to the brain and throughout the lung, diabetes mellitus and gastroesophageal reflux disease. cc: Janak Marley MD MTDD
[2016-10-13] MEDS: CULTURELLE PO SCH (21:10)
[2016-10-13] MEDS: LANTUS SUBQ SCH (21:10)
[2016-10-13] MEDS: LIPITOR PO SCH (21:11)
[2016-10-14] MEDS: NS 1,000 ML IV SCH (00:17)
[2016-10-14] MEDS: DECADRON IV SCH ×4 (03:12→20:56)
[2016-10-14] MEDS: DUONEB (A & A) INH SCH ×4 (03:29→22:38)
[2016-10-14] MEDS: HUMULIN R SUBQ SCH ×5 (06:22→21:00)
[2016-10-14] MEDS: MBX SOLUTION MT SCH ×5 (06:33→21:02)
[2016-10-14] MEDS: CARAFATE LIQUID PO SCH ×4 (06:33→20:56)
[2016-10-14] MEDS: MAXIPIME 2 GM/NS 2 GM/100 ML IVPB IV SCH (06:43)
[2016-10-14] MEDS: NEXIUM IV SCH ×2 (06:43→16:55)
[2016-10-14 06:47] LABS: AGAP 13; BUN 27 mg/dL (8-22); CALCIUM 8.8 mg/dL (8.8-10.2); CHLORIDE 97 mmol/L (98-107); COSMO 292; POTASSIUM 4.6 mmol/L (3.5-5.1); SODIUM 138 mmol/L (136-145); TCO2 28 mmol/L (25-35)
[2016-10-14 06:51] LABS: BASO% 0.3 % (0.0-0.8); EOS# 0.03 X1000 (0.0-0.7); EOS% 0.2 % (0.0-10.0); HEMATOCRIT 31.9 % (42.0-52.0); HEMOGLOBIN 10.5 g/dL (14.0-18.0); IMM GRAN# 0.57 X1000 (0.0-0.04); IMM GRAN% 2.9 % (0.0-0.5); LYMPH% 5.1 % (20.5-51.1); MANUAL DIFF NEEDED? YES; MCH 31.7 PG (27-31); MCHC 32.9 g/dL (33-37); MCV 96.4 FL (81-99); MONO# 1.02 X1000 (0.11-0.59); MONO% 5.2 % (1.7-9.3); MPV 9.1 FL (7.4-10.4); NEUT% 86.3 % (42.2-75.2); PLT 465 X1000 (130-400); RBC 3.31 XMIL (4.7-6.1)
[2016-10-14 07:41] LABS: LYMPHS 4 % (21-51)
[2016-10-14] MEDS ORDERED: LANTUS SUBQ SCH (08:58)
[2016-10-14] MEDS: CALMOSEPTINE OINTMENT TOP PRN (09:24)
[2016-10-14] MEDS: GLUCOPHAGE PO SCH ×2 (09:25→16:54)
[2016-10-14] MEDS: JANUVIA PO SCH ×2 (09:25→16:54)
[2016-10-14] MEDS: TOPROL XL PO SCH (09:25)
[2016-10-14] MEDS: ASPIRIN EC PO SCH (09:25)
[2016-10-14] MEDS: ICAR-C PO SCH ×2 (09:25→20:56)
[2016-10-14] MEDS: EVOXAC PO SCH ×3 (09:26→16:54)
[2016-10-14] MEDS: CULTURELLE PO SCH ×2 (09:26→20:56)
[2016-10-14] MEDS: ELDERTONIC PO SCH (09:26)
[2016-10-14] MEDS: NON-FORMULARY BULK MED MISC SCH ×3 (09:29→16:55)
[2016-10-14] MEDS: LOVENOX SUBQ SCH (14:37)
--- NOTE | 2016-10-14 14:43 | PROGRESS NOTE ---
DATE: 10/14/2016 SUBJECTIVE: Mr. Wheeler is lying in hospital bed. He reports that he is doing relatively well today and has no new complaints. OBJECTIVE: Vital Signs: Temperature 97.5 degrees, heart rate 83, respiration 17, blood pressure 149/73, O2 saturation 98% on 2 L nasal cannula. LABORATORY: White blood cells 19.67, hemoglobin 10.5, hematocrit 31.9, platelets 465,000. Sodium 138, potassium 4.6, chloride 97, CO2 28, BUN 27, creatinine 0.9, glucose 302. PHYSICAL EXAMINATION: Cardiovascular: S1-S2 heard. No murmurs, gallops, rubs appreciated. Respiratory: Coarse breath sounds bilaterally. No rhonchi, rales or wheezing noted. Abdomen: Soft, nontender, nondistended, with positive bowel sounds. Extremities: Patient has trace bilateral extremity edema. Right upper extremity has edema as well. Left upper extremity is unremarkable. IMAGING: A CT angio done on 10/13/2016 does show interval worsening compared to a scan done on 10/01/2016. He has an obstructing right hilar mass. There is also mild narrowing to the main pulmonary artery as well as the major branches to the right upper, middle and lower lobes. There is an invasion of the right mainstem bronchus as well. There is obstruction consolidation of the right upper lobe. There is a right-sided pleural effusion that now measures 4.5 cm posteriorly and inferiorly in the midline. He has a trace left pleural fluid. There are many bilateral scattered nodules as well. No filling defects within the pulmonary arteries. ASSESSMENT AND PLAN: 1. Metastatic non-small cell lung cancer. Patient has previously received neoadjuvant treatment. He then developed brain metastases and received whole-brain radiation recently. He is also status post 1 dose of Opdivo. The patient has not received any radiation to his lungs. We will consider whether radiation will help improve the patient at this time. No action needed at this time in regards to radiation. 2. Weakness and deconditioning. Patient will to continue to participate with Physical Therapy. 3. Pneumonia. Continue antibiotics as per Infectious Disease. 4. Worsening of brain metastases on the recent outside MRI. Patient will continue on dexamethasone 4 mg q.6 hours. 5. Leukocytosis. This is likely reactive secondary to steroids. 6. Disposition. The hope is that the patient will gain some strength with physical therapy while in the hospital. The plan is then for him to try to go to a rehab to gain additional strength. We will continue to follow. The patient has been encouraged to continue with physical therapy. Dictated by RADHA Pacheco for Ana María Rossi MD cc: Ana María Rossi MD I have seen and examined the patient and agree with the above A/P. Ana María Rossi MD [facility]ITALAdamaris
--- NOTE | 2016-10-14 15:28 | PROGRESS NOTE ---
DATE: 10/14/2016 PRESENT ILLNESS: The patient has worsening lung cancer based on his CAT scan done 2 days ago. It is spreading and almost occluding the whole right lung. MEDICATIONS: The patient is on cefepime as a single agent. PHYSICAL EXAMINATION: Vital Signs: Temperature is 97.5 degrees, pulse 81, respirations 20, blood pressure 109/54. Generally: This is an ill-appearing elderly male. He continues to hiccup quite frequently. Lungs: There were diminished breath sounds on the right side. The left side was clear. Cardiovascular: Heart rate was regular. Abdomen: Soft and nontender. LAB AND X-RAY: As far as the lab goes, the patient has a creatinine is 1.0, GFR is 53. CBC shows a white count of 7560, hemoglobin 8.3, and platelet count 289,000. Blood cultures are sterile. ASSESSMENT AND PLAN: I for now will keep cefepime going. I am not certain that the antibiotics are helping much. I think if the patient wanted to go home we could send him home on p.o. antibiotics, such as Ceftin 500 mg p.o. every 12 hours, or whatever generic they substitute for it. Patient's lung cancer is increasing in size as well as more metastases as well. I am uncertain as to how much the antibiotics help this patient. I think a lot of the pulmonary findings are due to increased size of the lung mass and closing of airways due to the malignancy. For now, I am going to continue his cefepime. The patient's comorbidity is that he has advanced cancer which I think is responsible for most of his problems at this time. The patient unfortunately has advanced lung cancer. I do not think there is much more I can do. As mentioned above, we could send the patient home on Ceftin. I will keep going with antibiotics while the patient is in the hospital. COMORBIDITIES: Patient's comorbidities include lung cancer which is metastatic to the brain and throughout the lung, diabetes, and gastroesophageal reflux disease. cc: Janak Marley MD MTDD
--- NOTE | 2016-10-14 15:46 | PROGRESS NOTE ---
DATE: 10/14/2016 SUBJECTIVE: Today, Mr. Wheeler referred to be pretty much the same. He is just waiting for approval to go to rehab. OBJECTIVE: Vital Signs: Blood pressure is 149/73, pulse of 91, respirations 18 , temperature is 97.5. General: Mr. Wheeler is a 66-year-old male. He is in bed and seems to be in distress. HEENT: Mucosa is pink and moist. Anicteric. Acyanotic. Neck is supple. Chest: Air entry bilaterally reduced, more so to the right upper chest field. There is dullness to percussion and some diffuse bilateral crepitations more so in the right posterior lung field. Cardiovascular: Regular rate and rhythm. Abdomen is soft, nontender. Extremities: No pedal edema. DIRECTOR OF ROOMS: Patient is awake and alert. No focal neurological deficit. There is a PICC line on the right upper arm. LABORATORY DATA: Reviewed. WBC is 19.67, hemoglobin is 10.5, platelet count is 455,000. No imaging studies today. ASSESSMENT: 1. Metastatic res-gjlrs-huhu lung cancer to the brain status post whole brain radiation and chemotherapy and 1 time opdivo therapy. 2. Right upper lobe pneumonia possibly postobstructive pneumonia. 3. Generalized weakness and physical deconditioning. 4. Radiation induced Xerostomia 5. Diabetes mellitus with hyperglycemia. We have gone up on the insulin needs to 25 of the Lantus. 6. Protein calorie malnutrition. 7. Diarrhea. Clostridium difficile toxin is negative. I think this probably just related to the side effects of the antibiotics. In general, I think Mr. Wheeler continues to be the same. His underlying lung disease is getting worse. I think that the plan for him is to go to rehab. We will consult oncology social work to discuss rehab options with him. cc: MD MARTY Baker
--- NOTE | 2016-10-14 16:47 | DISCHARGE SUMMARY ---
ADMISSION DATE: 10/09/2016 DISCHARGE DATE: 10/15/2016 DISPOSITION: Rehab center. FOLLOWUP: 1. 1-[address] Marley[address] Brian Mcnair. CONSULTATION DURING THIS ADMISSION: 1. Gastroenterology was consulted. Patient was seen by Dr. John Jean. 2. Hematology/Oncology was consulted. Patient was seen by a Ana María Rossi MD. 3. Infectious Disease was consulted. Patient was seen by Janak Marley MD. INVASIVE PROCEDURES DONE DURING ADMISSION: EGD was done by Dr. Jean on 2016 where there was a questionable distal esophagus ring and it was dilated. ADMISSION DIAGNOSES: 1. Metastatic lung cancer to brain. 2. Persistent right lower lobe pneumonia. 3. Dysphagia. 4. Coronary artery disease. DISCHARGE DIAGNOSES: 1. Dysphagia secondary to esophageal ring status post dilatation. 2. Metastatic non-small cell cancer to brain status post radiation therapy. Chemotherapy and 1 time Opdivo immunotherapy. 3. Right upper lobe pneumonia, possibly postobstructive pneumonia. 4. Generalized weakness and physical deconditioning. 5. Radiation induced xerostomia. 6. Diabetes mellitus. 7. Protein calorie malnutrition. 8. Diarrhea. DISCHARGE MEDICATIONS: 1. Janumet . 2. Metoprolol 100 mg daily. 3. Atorvastatin 80 mg p.o. at bedtime. 4. Aspirin 81 mg daily. 5. Nexium 40 mg daily. 6. Ceftin 500 mg b.i.d. PRESENTING COMPLAINT: Increased weakness and difficulty swallowing. HISTORY OF PRESENTING COMPLAINT: Mr. Wheeler is a 66-year-old male who has a history of lung cancer. Normally follows up with Dr. Rossi. The patient has been found to have metastatic disease to the brain, had whole cranium radiation. Subsequently it was decided that he did not do well on chemotherapy so Opdivo was started. However, patient developed fever and was admitted, sent home and then came by because of difficulty swallowing. EGD was done. They found out that there was a distal esophageal web which was dilated. Patient was also found to have xerostomia which we think is due to radiation therapy. The patient was started on biotin and on Evoxac. He improved on the xerostomia and his swallowing also improved. Infectious Disease was consulted and patient was started on cefepime. However, a CT scan was done which did show remarkable worsening of the underlying lung cancer. The patient has been seen by his primary Hematology/Oncologist, Dr. Rossi and she recommends that the patient goes to the rehab. Today there has been a bed available so will discharge the patient to rehab for him to continue with physical rehabilitation. At the time of the discharge, there are no pending labs or imaging studies. Patient will be discharged to rehab. He will follow up with all the subspecialties that have been involved in his care. TIME SPENT FOR DISCHARGE: 37 minutes. cc: Dm Duque MD Patient was eventually discharged on 10/15/2016 in a stable condition to rehab [facility]
[2016-10-14] MEDS: LIPITOR PO SCH (20:56)
[2016-10-14] MEDS ORDERED: CEFTIN PO SCH (21:00)
[2016-10-15] MEDS: CARAFATE LIQUID PO SCH (03:04)
[2016-10-15] MEDS: DECADRON IV SCH (03:04)
[2016-10-15] MEDS: DUONEB (A & A) INH SCH (03:59)
[2016-10-15] MEDS: HUMULIN R SUBQ SCH (07:09)
[2016-10-15] MEDS: SODIUM CHLORIDE 0.9% INJ SCH (07:10)
[2016-10-15] MEDS: NEXIUM IV SCH (07:10)
[2016-10-15 08:01] VITALS: BP 146/94
[2016-10-15] MEDS ORDERED: DECADRON PO SCH (09:00)
--- NOTE | 2016-10-16 11:50 | PROGRESS NOTE ---
DATE: 10/11/2016 SUBJECTIVE: The patient i resting comfortably. Family at bedside. He says he is feeling better. His saliva was slowly coming back. He tolerated liquids and a pureed diet without any aspiration. He does have pneumonia. He also had a little bit of liquid stool since he started eating. OBJECTIVE: Vitals: Temp 98 degrees, pulse 86, respirations 17, blood pressure 120/70, saturation 97% on room air. General: Well-built, well-nourished. Lying in bed, in no distress. HEENT: Mild pallor. No icterus. Neck: Supple. Trachea midline. Heart normal. Lungs: Bibasilar rales, poor on the left side. Abdomen: Obese, nondistended, no organomegaly, no ascites. Bowel sounds present and normal. Extremities: Unremarkable. LABORATORY DATA: Hemoglobin and hematocrit are 10.4 and 30.9. White count 17.6. The rest of the labs are normal. Patient does have an obstructing right hilar mass about 7 cm in diameter and increasing and right- sided pleural effusion. IMPRESSION AND PLAN: 1. Metastatic non-small lung cancer with brain mets, status post neoadjuvant treatment with radiation which resulted in xerostomia which has been better. 2. Right lower lobe pneumonia on antibiotics due to obstructed pneumoniae. 3. Gastrointestinal prophylaxis. 4. Diarrhea. The patient had the constipation, was given Dulcolax that has been stopped. Stool is being studied for C. difficile and white count. 5. Anemia, it is improving. 6. The patient is generally feeling better but the obstructive mass and postobstructive pneumonia may not be related to any aspiration, and it is probably from the right hilar mass. All of the specialists and Dr. Marley are following. I think his intake would improve with time. I do not think he needs any G-tube any time soon. I did discuss with him that is what will be done if he has further problems, but patient is confidant that he is feeling better as well as nutritional intake. cc: Lindsey Abdul MD MTDD
--- NOTE | 2016-12-08 11:36 | PROVIDER DOCUMENTATION ---
This chart was entered by Tennille Thurman Scribe, acting as scribe for Mike Agudelo MD. HPI-General Adult - General Chief Complaint: General Adult Stated Complaint: weakness Time Seen by Provider: 10/08/16 07:07 Source: patient, family Allergies/Adverse Reactions: Patient Allergies Allergy/AdvReac Type Severity Reaction Status Date / Time codeine Allergy Unknown Verified 10/08/16 08:10 hydrocodone Allergy Unknown Verified 10/08/16 08:10 Home Medications: Home Medication List Medication Instructions Recorded Confirmed Last Taken Type Aspirin EC 81 mg PO DAILY 10/01/16 10/08/16 10/07/16 08:00 History Atorvastatin Calcium [Lipitor] 80 mg PO QHS 10/01/16 10/08/16 10/07/16 20:00 History Esomeprazole Magnesium [Nexium] 40 mg PO DAILY 10/01/16 10/08/16 10/07/16 08:00 History Metoprolol Succinate [Toprol Xl] 100 mg PO DAILY 10/01/16 10/08/16 10/07/16 08: 00 History CefUROXIME [Ceftin] 500 mg PO Q12HR tablet 10/14/16 Unknown Rx Cevimeline [Evoxac] 30 mg PO TID capsule 10/14/16 Unknown Rx Insulin Glargine [Lantus] 25 unit SUBQ QHS insuln.pen 10/14/16 Unknown Rx Iron Carbonyl/Ascorbic Acid 1 each PO BID tablet 10/14/16 Unknown Rx [Icar-C] Lactobacillus Rhamnosus GG 1 each PO BID capsule 10/14/16 Unknown Rx [Culturelle] Metformin [Glucophage] 500 mg PO BID CC tablet 10/14/16 Unknown Rx Non-Formulary Bulk Med 0 each MISC TID misc 10/14/16 Unknown Rx Sitagliptin [Januvia] 50 mg PO BID CC tablet 10/14/16 Unknown Rx - History of Present Illness -Gen Adult Nature of Presenting Problems: Pt just released from hospital for pneumonia. He has non-small cell lung cancer with pleural and brain metastasis. Returns today due to anorexia and poor po intake. Pt states he can't eat due to dry mouth but is only taking occasional small sips of liquids. He is receiving home IV medications for his pneumonia (zosyn via PICC line). Pt does not want to be admitted to the hospital. Is schedule to see oncologist. Had chemo/radiation in the past. Review of Systems - Adult - REVIEW OF SYSTEMS - ADULT Constitutional: denies: chills, fever Eyes: reports: no symptoms reported Ears, Nose, Mouth & Throat: reports: other (trouble swollowing and dry mouth). denies: mouth/dental pain Cardiovascular: denies: chest pain, syncope Respiratory: reports: cough. denies: shortness of breath Gastrointestinal: denies: abdominal pain, nausea, vomiting Genitourinary: reports: no symptoms reported Musculoskeletal: reports: no symptoms reported Integumentary: reports: no symptoms reported Neurological: reports: other (diffuse weakness). denies: seizure Psychiatric: reports: no symptoms reported Endocrine: reports: no symptoms reported Hematologic/Lymphatic: reports: no symptoms reported Allergic/Immunologic: reports: no symptoms reported All Other Systems: Reviewed and Negative Past History - Adult - PAST MEDICAL HISTORY-ADULT Review of Records: reports: Old Records Reviewed, Nursing Assessment Review, Medications Reviewed Cardiovascular: reports: blood clots (remote) Respiratory: reports: COPD, cancer (non small cell lung), pneumonia Neurological: reports: cancer/tumor (met from lung), Seizures/Epilepsy - PRIOR SURGERIES/PROCEDURES Surgical/Procedure History: reports: other (lung) - IMMUNIZATION STATUS Childhood Immunizations: See Nurse Assessment Flu Vaccine: See Nurse Assessment - SOCIAL HISTORY Smoking: quit greater than 1 year Physical Exam-General - PHYSICAL EXAM-ADULT Initial Vital Signs Reviewed: Yes - CONSTITUTIONAL General Appearance: no apparent distress. negative: cachetic, lethargic - EYES Eyes: PERRL/EOMI, pink conjunctivae, sunken eyes - HEAD, EARS, NOSE, MOUTH & THROAT HENMT: normocephalic/atraumatic, other (Dry MM's) - NECK Neck: non-tender, full range of motion, supple - RESPIRATORY Respiratory: chest non-tender, lungs clear, decreased breath sounds (right sided ), increased rate. negative: rhonchi, wheezing - CARDIOVASCULAR Cardiovascular: normal peripheral pulses, regular rate, rhythm, no edema - GASTROINTESTINAL (ABDOMEN) Abdominal Exam: soft, no organomegaly - LYMPHATIC Lymphatic: no adenopathy. negative: enlargement - MUSCULOSKELETAL Extremity: normal range of motion, non-tender, no pedal edema - SKIN Integumentary: normal color, warm/dry - NEUROLOGIC Neurologic: grossly normal. negative: focal weakness - PSYCHIATRIC Psych/Mental Status: oriented x 3, depressed affect Progress - PLAN OF CARE/RESULTS Progress/Plan/Lab Results: Vital Signs - 8 hr 10/08/16 07:05 Temperature 98.4 F Pulse Rate 89 Respiratory Rate 31 H Blood Pressure 162/90 O2 Sat by Pulse Oximetry 91 L Laboratory Results - last 24 hr 10/08/16 10/08/16 10/08/16 07:16 07:16 09:14 WBC 13.39 H RBC 3.08 L Hgb 9.8 L Hct 29.6 L MCV 96.1 MCH 31.8 H MCHC 33.1 RDW Std Deviation 13.7 Plt Count 460 H MPV 8.3 Immature Gran % (Auto) 1.2 H Neut % (Auto) 79.1 H Lymph % (Auto) 8.3 L [place] % (Auto) 10.5 H Eos % (Auto) 0.5 Baso % (Auto) 0.4 Immature Gran # (Auto) 0.16 H Neut # (Auto) 10.60 H Lymph # (Auto) 1.11 L [place] # (Auto) 1.40 H Eos # (Auto) 0.07 Baso # (Auto) 0.05 Sodium 136 Potassium 3.4 L Chloride 97 L Carbon Dioxide 26 Anion Gap 13 BUN 17 Creatinine 1.1 Estimated GFR/1.73 m2 > 60 BUN/Creatinine Ratio 15 Glucose 155 H Calculated Osmolality 277 Calcium 9.7 Total Bilirubin 0.50 AST 16 ALT 11 Alkaline Phosphatase 124 H Total Protein 6.2 L Albumin 2.5 L Globulin 3.7 Albumin/Globulin Ratio 0.7 Urine Source VOIDED Urine Color YELLOW Urine Turbidity CLEAR Urine pH 6.5 Ur Specific [place] 1.019 Urine Protein TRACE A Ur Glucose (Stick) NEGATIVE Ur Ketones (Stick) NEGATIVE Urine Blood NEGATIVE Urine Nitrite NEGATIVE Urine Bilirubin NEGATIVE Urobilinogen Dipstick NORMAL Urine Leukocytes NEGATIVE Urine WBC (Auto) <10 Urine RBC (Auto) <10 U Epithel Cells (Auto) <10 Urine Bacteria (Auto) NEGATIVE Orders Category Date Time Status CHEST-PORTABLE [RAD] Stat Exams 10/08/16 07:35 Completed CBC WITH ELECTRONIC DIFF [HEME] Stat Lab 10/08/16 07:16 Completed COMPREHENSIVE METABOLIC PANEL [CHEM] Stat Lab 10/08/16 07:16 Completed UA [URINALYSIS-1] [URINALYSIS] Stat Lab 10/08/16 09:14 Completed 0.9% Sodium Chloride Inj [Ns] 1,000 ml Med 10/08/16 07:30 Discontinued IV 999 mls/hr Result Diagrams: 10/14/16 06:00 10/14/16 06:00 - XRAY 1 XRAY Study: Chest Impression: Abnormal XRAY Interpretation: Right sided infiltrate/effusion - CONSULTS/PCP/HOSPITALIST Notification #1 *Consult/PCP/Hospitalist*: Hospitalist Time Discussed: 09:45 Consult Disposition: Will see in ED Departure - Departure Date of Disposition Decision: 10/08/16 Time of Disposition Decision: 10:15 DIAGNOSIS: Pneumonia, Non-small cell cancer of right lung, Brain metastasis Disposition: ADMITTED INPATIENT 09 Certified Medical Emergency: Emergent Condition: Poor - Critical Care Note This patient required my direct & personal management of CC.: No Attestation - Physician/ GLENNA Attestation Patient care was provided by Advanced Practice Provider:: No The physician spent face to face time with patient:: Yes Advanced Practice Provider documentation review:: Supervising physician onsite and consulted in the evaluation and care of this patient. The physician did have a face to face encounter with the patient. This chart was documented by the indicated scribe, (Tennille Thurman, Scribe) and accurately reflects the services I performed and decisions made by me, Mike Agudelo MD, as attested by the provider's signature.
== END 2016-10-15 09:23 ==
LOC: SUPCPDRO → ED 07:02 → 4N 11:06 → SUATTDRO 11:06 → 4N 11:27 → 3N 10-11 09:41
PROVIDERS: ATTEND Internal Medicine